=== PATIENT | male | born 1955 | race Caucasian/White ===

== ENCOUNTER 2018-04-28 12:05 | Emergency (ER) | payer OTHER ==
--- OUTSIDE RECORDS SUMMARY | 2018-04-28 12:08 | XMS REPORT | Clinical Summary ---
:1955 Author Organization [facility] Address [address] [place] [address] Care Team Providers Name Role Phone Klaus Lema Radha VILLEGAS Primary Care Provider Allergies No Known Allergies Current Medications Prescription Sig. Disp. Refills Start Date End Date Status albuterol (PROAIR Inhale 1 puff. Active HFA,PROVENTIL HFA,VENTOLIN HFA) 90 mcg/actuation inhaler aspirin 81 mg chewable Chew 81 mg. Active tablet clopidogrel (PLAVIX) 75 Take 75 mg by mouth. Active mg tablet amLODIPine (NORVASC) 5 Take 5 mg by mouth Active mg tablet daily. traMADol (ULTRAM) 50 mg Take 50 mg by mouth Active tablet every 6 (six) hours as needed for moderate pain. sertraline (ZOLOFT) 50 Take 50 mg by mouth Active MG tablet daily. pravastatin (PRAVACHOL) Take 40 mg by mouth Active 40 MG tablet daily. Active Problems Not on file Encounters Date Type Specialty Care Team Description 04/18/2018 Office Visit Cardiovascular Lakia Riddle MD PAD (peripheral artery disease) (Primary Dx) after 04/27/2017 Social History Tobacco Use Types Packs/Day Years Used Date Former Smoker Quit: 04/18/2006 Smokeless Tobacco: Never Used Sex Assigned at Date Recorded Not on file Last Filed Vital Signs Vital Sign Reading Time Taken Blood Pressure 169/79 04/18/2018 8:04 AM CDT Pulse 70 04/18/2018 8:04 AM CDT Temperature 36.5 C (97.7 F) 04/18/2018 8:04 AM CDT Respiratory Rate - - Oxygen Saturation - - Inhaled Oxygen Concentration - - Weight 83.9 kg (185 lb) 04/18/2018 8:04 AM CDT Height 177.8 cm (5' 10") 04/18/2018 8:04 AM CDT Body Mass Index 26.54 04/18/2018 8:04 AM CDT Plan of Treatment Date Type Specialty Care Team Description 05/04/2018 Appointment Procedural Cardiology Lakia Riddle MD [address] [facility] [address] [place] [address] 05/14/2018 Office Visit Cardiovascular Lakia Riddle MD [address] [facility] [address] [place] [address] Health Maintenance Due Date Last Done Comments COLON CANCER SCREENING 2007 SHINGRIX VACCINE (#1) 2007 ZOSTER VACCINE 2017 INFLUENZA VACCINE 04/04/2018 Results Not on fileafter 04/27/2017 Insurance Payer Benefit Plan / Group Subscriber ID Type Phone Address UHC MEDICARE [employer] MEDICARE DIRECT [facility] xxxxxxxxx O
[2018-04-28 15:04] LABS: Absolute Monocytes 0.7 K/uL (0.1-1.3); Basophils % 0.6 % (0-1.3); Eosinophils % 2.9 % (0-4.4); Hematocrit 45.8 % (39.6-49.0); MCH 32.2 pg (27.0-35.0); MCV 93.7 fL (80-100); MPV 8.1 fL (7.6-11.3); Monocytes % 9.2 % (3.3-12.3); RBC Red Blood Cell Count 4.89 M/uL (4.33-5.43)
[2018-04-28 15:19] LABS: Protime INR 1.02
[2018-04-28 15:21] LABS: Albumin 3.9 g/dL (3.4-5.0); Bilirubin Direct 0.1 mg/dL (0-0.2); Bilirubin Total 0.3 mg/dL (0.2-1.0); Potassium 4.1 mmol/L (3.5-5.1); Protein, Total 7.8 g/dL (6.4-8.2)
[2018-04-28] MEDS ORDERED: ONDANSETRON 4 MG/2 ML VIAL ONE (15:55)
[2018-04-28] MEDS ORDERED: MORPHINE 4 MG/ML SYR ONE ×2 (15:55→17:15)
--- NOTE | 2018-04-28 17:06 | RAD REPORT ---
EXAM DESCRIPTION: USEXTALLEN VENOUS UNI LTD04/28/2018 4:21 pm CLINICAL HISTORY: Right leg pain . COMPARISON: None. FINDINGS: Right common femoral, superficial femoral, popliteal and right posterior tibial veins are compressible and demonstrate augmentation. Doppler demonstrates good flow. IMPRESSION: No evidence of deep venous thrombosis involving the right lower extremity.
--- NOTE | 2018-04-28 17:12 | RAD REPORT ---
EXAM DESCRIPTION: US - LOWER EXTREMITY ARTERY UNI LTD - 04/28/2018 4:21 pm CLINICAL HISTORY: Right leg pain COMPARISON: CT April 16, 2018 FINDINGS: A 25 x 17 millimeter fluid collection lies anterior to the right common femoral artery. It does not contain blood flow. Right common femoral and right superficial femoral artery demonstrates biphasic waveforms. There appe ars to be a graft at the distal right superficial femoral artery which extends into the superior aspe ct of the calf. The graft is patent. Monophasic waveforms involve right posterior tibial artery. Right dorsalis pedis artery has a biphasi c waveform IMPRESSION: 25 x 17 millimeter fluid collection anterior to the right common femoral artery may repr esent a subacute hematoma. An abscess is considered less likely and should be correlated clinically. Patent arterial graft
[2018-04-28 17:44] LABS: Urine Blood NEGATIVE (NEG); Urine Glucose NEGATIVE (NEG); Urine Protein NEGATIVE (NEG); Urine pH 6.5 (5.0-7.0)
--- NOTE | 2018-04-28 18:50 | RAD REPORT ---
EXAM DESCRIPTION: CT - Angio Aorta For Dissection - 04/28/2018 6:19 pm CLINICAL HISTORY: . Chest and abdominal pain/right inguinal swelling COMPARISON: April 16, 2018 CT TECHNIQUE: Computed tomography angiography of the chest, abdomen pelvis were obtained. 100 cc Isovue 370 was administered intravenously. Coronal and sagittal reconstruction were performed. MIP 3D reconstruction was performed All CT scans are performed using dose optimization technique as appropriate and may include automated exposure control or mA/KV adjustment according to patient size. FINDINGS: An aortic dissection is not seen. An aortic aneurysm is not displayed. Mild thrombus is p resent within the thoracic abdominal aorta. An aorto femoral graft is patent. A portion of the left i nternal iliac artery is occluded. The celiac, and SMA are patent. The proximal BLAIR is not visualized. A lung consolidation is not present. A pericardial effusion is not seen. A pleural effusion is not n oted. The liver,spleen, pancreas ,adrenals kidneys demonstrate no significant abnormality. A 26 x 19 millimeter fluid collection lies anterior to the right common femoral artery and is without significant change from the prior exam. IMPRESSION: Negative for an aortic dissection. Patent aortofemoral graft 26 x 19 millimeter fluid collection anterior to the right common femoral artery without significant c hange may represent a hematoma. An abscess can also have this appearance and should be correlated cli nically
--- NOTE | 2018-04-28 19:27 | EDPHYS ---
Physician Documentation [facility] Name: Anthony Griffin Age: 62 yrs Sex: Male : 1955 Arrival Date: 04/28/2018 Time: 12:06 Bed 13 Private MD: Klaus Lema ED Physician Taj Wynne HPI: 04/28 17:00 This 62 yrs old Male presents to ER via Ambulatory with complaints of Right pm1 Leg Pain and Swelling. 17:00 The patient presents with pain, swelling. The complaints affect the right arredondo and pm1 right inguinal area. Patient with right femoral artery bypass two months ago in [place] due to femoral artery occlusion. Since having the graft, patient has reported right groin swelling and right arredondo swelling. Right arredondo swelling resolves when his feet are elevated and increase with dependence and standing. Right groin pain and swelling has been constant since surgery. Patient without any numbness, tingling, or decreased warmth to right leg. Patient was evaluated at [facility] for the same presentation and complaint 1-2 weeks and was discharged from the ER for outpatient follow up . Historical: - Allergies: 12:42 No Known Allergies; ss - Immunization history:: Adult Immunizations up to date. - Social history:: Smoking status: Patient/guardian denies using tobacco, the patient reports quitting approximately 13 years ago. - Ebola Screening: : Patient denies exposure to infectious person Patient denies travel to an Ebola-affected area in the 21 days before illness onset. ROS: 17:00 Constitutional: Negative for fever, chills, and weight loss, Eyes: Negative for injury, pm1 pain, redness, and discharge, ENT: Negative for injury, pain, and discharge, Neck: Negative for injury, pain, and swelling, Cardiovascular: Negative for chest pain, palpitations, and edema, Respiratory: Negative for shortness of breath, cough, wheezing, and pleuritic chest pain, Back: Negative for injury and pain, : Negative for injury, bleeding, discharge, and swelling. 17:00 Abdomen/GI: Negative for abdominal pain, nausea, vomiting, diarrhea, and constipation. 17:00 Skin: Negative for injury, rash, and discoloration. 17:00 Neuro: Negative for headache, weakness, numbness, tingling, and seizure. 17:00 : Positive for of the right femoral area, tenderness and swelling. 17:00 MS/extremity: Positive for pain, swelling, of the right arredondo. Exam: 17:00 Constitutional: This is a well developed, well nourished patient who is awake, alert, pm1 and in no acute distress. Head/Face: Normocephalic, atraumatic. Neck: Trachea midline, no thyromegaly or masses palpated, and no cervical lymphadenopathy. Supple, full range of motion without nuchal rigidity, or vertebral point tenderness. No Meningismus. Chest/axilla: Normal chest wall appearance and motion. Nontender with no deformity. No lesions are appreciated. Cardiovascular: Regular rate and rhythm with a normal S1 and S2. No gallops, murmurs, or rubs. Normal PMI, no JVD. No pulse deficits. Respiratory: Lungs have equal breath sounds bilaterally, clear to auscultation and percussion. No rales, rhonchi or wheezes noted. No increased work of breathing, no retractions or nasal flaring. Abdomen/GI: Soft, non-tender, with normal bowel sounds. No distension or tympany. No guarding or rebound. No evidence of tenderness throughout. Back: No spinal tenderness. No costovertebral tenderness. Full range of motion. 17:00 MS/ Extremity: Pulses equal, no cyanosis. Neurovascular intact. Full, normal range of motion. 17:00 : Male external genitalia: normal, no erythema, no swelling, no tenderness. 17:00 Skin: abscess, not appreciated, of the right femoral and inguinal area, cellulitis, is not appreciated, on the right femoral and inguinal area. Vital Signs: 12:42 BP 155 / 94; Pulse 100; Resp 21; Temp 98.2(O); Pulse Ox 95% on R/A; Weight 85.73 kg; ss Height 5 ft. 10 in. (177.80 cm); Pain 7/10; 15:39 BP 145 / 69; Pulse 75; Resp 18; Pulse Ox 100% ; tl3 16:00 BP 157 / 83; Pulse 81; Resp 18; Pulse Ox 100% on R/A; tl3 17:15 BP 137 / 77; Pulse 92; Resp 18; Pulse Ox 97% on R/A; tl3 18:41 BP 111 / 95; Pulse 82; Resp 18; Pulse Ox 96% on R/A; dm5 19:20 BP 110 / 90; Pulse 72; Resp 16; Temp 97.6; Pulse Ox 96% on R/A; Pain 4/10; ak1 12:42 Body Mass Index 27.12 (85.73 kg, 177.80 cm) ss MDM: 14:03 Patient medically screened. pm1 17:30 Physician consultation: Lakia Riddle was called at 17:25, was contacted at 17:25, pm1 regarding consult, patient's condition, would like further tests performed, CTA. 17:39 Data reviewed: vital signs. Data interpreted: Pulse oximetry: on room air is 97 %. pm1 Interpretation: normal. 19:22 Physician consultation: Lakia Riddle was contacted at 19:23, regarding patient's pm1 condition, CT results, and will see patient in office, next week, patient has scheduled appointment on the 05/03. 19:26 Counseling: I had a detailed discussion with the patient and/or guardian regarding: the pm1 historical points, exam findings, and any diagnostic results supporting the discharge/admit diagnosis, lab results, radiology results, the need for outpatient follow up, vascular surgeon, to return to the emergency department if symptoms worsen or persist or if there are any questions or concerns that arise at home. 04/28 14:24 Order name: CBC with Diff; Complete Time: 15:23 pm04/28 14:24 Order name: BMP; Complete Time: 15:23 pm04/28 14:24 Order name: Hepatic Function; Complete Time: 15:23 pm04/28 14:24 Order name: PT-INR; Complete Time: 15:23 pm04/28 14:24 Order name: Ptt, Activated; Complete Time: 15:23 pm04/28 17:34 Order name: Urine Dipstick--Ancillary (enter results); Complete Time: 17:53 eb 04/28 14:23 Order name: Extremity Venous Uni Ltd US; Complete Time: 17:15 pm04/28 14:23 Order name: Lower Extremity Artery Uni Ltd US; Complete Time: 17:15 pm04/28 14:24 Order name: IV Saline Lock; Complete Time: 15:00 pm04/28 17:35 Order name: CT Aorta for Dissection; Complete Time: 19:02 pm1 Administered Medications: 15:58 Drug: morphine 4 mg Route: IVP; Infused Over: 2 mins; Site: right antecubital; tl3 18:42 Follow up: Response: No adverse reaction; Pain is decreased dm5 15:58 Drug: Zofran 4 mg Route: IVP; Infused Over: 2 mins; Site: right antecubital; tl3 18:43 Follow up: Response: No adverse reaction dm5 17:17 Drug: morphine 4 mg Route: IVP; Site: right antecubital; tl3 18:43 Follow up: Response: No adverse reaction; Pain is decreased dm5 Disposition: 04/28/18 19:26 Discharged to Home. Impression: Right groin hematoma. - Condition is Stable. - Discharge Instructions: Hematoma. - Prescriptions for Tylenol- Codeine #3 300-30 mg Oral Tablet - take 2 tablets by ORAL route every 6 hours As needed; 20 tablet. - Medication Reconciliation Form, Thank You Letter, Antibiotic Education, Prescription Opioid Use form. - Follow up: Emergency Department; When: As needed; Reason: Worsening of condition. Follow up: Private Physician; When: 5 - 6 days; Reason: Recheck today's complaints, Continuance of care, Re-evaluation by your physician. - Problem is new. - Symptoms have improved. Addendum: 04/30/2018 11:28 Co-signature as Attending Physician, Taj Wynne MD I agree with the assessment and w a plan of care. Signatures: Dispatcher [employer] EDMS Cuca Capone RN RN ss Krenek, Amber RN RN ak1 Nino Quijano, AUTOMATIC OUTSOLE CUTTER AUTOMATIC OUTSOLE CUTTER pm1 Taj Wynne MD MD wa Lowrey, Tammy, RN RN tl3 Mery Middleton RN dm5 Corrections: (The following items were deleted from the chart) 04/28 19:33 14:25 Urine Dipstick-Ancillary ordered. pm1 ak1 19:34 19:26 04/28/2018 19:26 Discharged to Home. Impression: Right groin hematoma. Condition ak1 is Stable. Forms are Medication Reconciliation Form, Thank You Letter, Antibiotic Education, Prescription Opioid Use. Follow up: Emergency Department; When: As needed; Reason: Worsening of condition. Follow up: Private Physician; When: 5 - 6 days; Reason: Recheck today's complaints, Continuance of care, Re-evaluation by your physician. Problem is new. Symptoms have improved. pm1
--- NOTE | 2018-04-28 19:27 | ER ---
Nurse's Notes [facility] Name: Anthony Griffin Age: 62 yrs Sex: Male : 1955 Arrival Date: 04/28/2018 Time: 12:06 Bed 13 Private MD: Klaus Lema Diagnosis: Right groin hematoma Presentation: 04/28 12:40 Presenting complaint: Patient states: Patient reports leg swelling, pain and ss discoloration to R arredondo area that began this morning. PT recently had surgery to his R femoral artery 3-4 months ago and was told by Dr. 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 Patient is here because of road closures. Transition of care: patient was not received from another setting of care. Onset of symptoms was April 28, 2018. Risk Assessment: Do you want to hurt yourself or someone else? Patient reports no desire to harm self or others. Initial Sepsis Screen: Does the patient meet any 2 criteria? RR > 20 per min. Does the patient have a suspected source of infection? No. Patient's initial sepsis screen is negative. Care prior to arrival: None. 12:40 Method Of Arrival: Ambulatory ss 12:40 Acuity: MENDY 2 ss Historical: - Allergies: 12:42 No Known Allergies; ss - Immunization history:: Adult Immunizations up to date. - Social history:: Smoking status: Patient/guardian denies using tobacco, the patient reports quitting approximately 13 years ago. - Ebola Screening: : Patient denies exposure to infectious person Patient denies travel to an Ebola-affected area in the 21 days before illness onset. Screenin:39 Abuse screen: Denies threats or abuse. Nutritional screening: No deficits noted. tl3 Tuberculosis screening: No symptoms or risk factors identified. Fall Risk None identified. Assessment: 15:39 General: Appears uncomfortable, well groomed, well developed, well nourished, Behavior tl3 is calm, cooperative, appropriate for age. Pain: Complains of pain in right upper thigh, right quadriceps and right arredondo Pain currently is 8 out of 10 on a pain scale. Neuro: Level of Consciousness is awake, alert, obeys commands, Oriented to person, place, time, situation, Appropriate for age. Cardiovascular: Capillary refill < 3 seconds in right toes Patient's skin is warm and dry. Cardiovascular: Reports swelling and pain to right leg, recent venous surgery to right leg. Respiratory: Airway is patent Respiratory effort is even, unlabored, Respiratory pattern is regular, symmetrical. GI: No signs and/or symptoms were reported involving the gastrointestinal system. : No signs and/or symptoms were reported regarding the genitourinary system. EENT: No signs and/or symptoms were reported regarding the EENT system. Derm: No signs and/or symptoms reported regarding the dermatologic system. Musculoskeletal: No signs and/or symptoms reported regarding the musculoskeletal system. 16:00 Reassessment: No changes from previously documented assessment. Patient and/or family tl3 updated on plan of care and expected duration. Pain level reassessed. Patient is alert, oriented x 3, equal unlabored respirations, skin warm/dry/pink. daughter at bedside. 17:15 Reassessment: No changes from previously documented assessment. Patient and/or family tl3 updated on plan of care and expected duration. Pain level reassessed. Patient is alert, oriented x 3, equal unlabored respirations, skin warm/dry/pink. pt c/o pain, provider notified. 18:41 Reassessment: No changes from previously documented assessment. Patient and/or family dm5 updated on plan of care and expected duration. Pain level reassessed. Patient is alert, oriented x 3, equal unlabored respirations, skin warm/dry/pink. no needs at this time. Vital Signs: 12:42 BP 155 / 94; Pulse 100; Resp 21; Temp 98.2(O); Pulse Ox 95% on R/A; Weight 85.73 kg; ss Height 5 ft. 10 in. (177.80 cm); Pain 7/10; 15:39 BP 145 / 69; Pulse 75; Resp 18; Pulse Ox 100% ; tl3 16:00 BP 157 / 83; Pulse 81; Resp 18; Pulse Ox 100% on R/A; tl3 17:15 BP 137 / 77; Pulse 92; Resp 18; Pulse Ox 97% on R/A; tl3 18:41 BP 111 / 95; Pulse 82; Resp 18; Pulse Ox 96% on R/A; dm5 19:20 BP 110 / 90; Pulse 72; Resp 16; Temp 97.6; Pulse Ox 96% on R/A; Pain 4/10; ak1 12:42 Body Mass Index 27.12 (85.73 kg, 177.80 cm) ED Course: 12:06 Patient arrived in ED. as 12:07 Klaus Lema DO is Private Physician. as 12:41 Triage completed. ss 12:42 Arm band placed on right wrist. ss 14:02 Nino Quijano NP is PHCP. pm1 14:02 Taj Wynne MD is Attending Physician. pm1 14:34 Elisha Valentine RN is Primary Nurse. tl3 14:57 Initial lab(s) drawn, by tx, sent to lab. Inserted saline lock: 20 gauge in right dh3 antecubital area, using aseptic technique. Blood collected. 15:39 Patient has correct armband on for positive identification. Placed in gown. Bed in low tl3 position. Call light in reach. Side rails up X 1. Pulse ox on. NIBP on. Warm blanket given. Pillow given. 15:39 No provider procedures requiring assistance completed. tl3 16:00 Patient taken to ultrasound. tl3 16:20 Extremity Venous Uni Ltd US In Process Unspecified. EDMS 16:20 Lower Extremity Artery Uni Ltd US In Process Unspecified. EDMS 16:20 Ultrasound completed. Patient tolerated well. Patient moved back from ultrasound. aa4 18:19 CT Aorta for Dissection In Process Unspecified. EDMS 19:33 IV discontinued, intact, bleeding controlled, No redness/swelling at site. Pressure ak1 dressing applied. Administered Medications: 15:58 Drug: morphine 4 mg Route: IVP; Infused Over: 2 mins; Site: right antecubital; tl3 18:42 Follow up: Response: No adverse reaction; Pain is decreased dm5 15:58 Drug: Zofran 4 mg Route: IVP; Infused Over: 2 mins; Site: right antecubital; tl3 18:43 Follow up: Response: No adverse reaction dm5 17:17 Drug: morphine 4 mg Route: IVP; Site: right antecubital; tl3 18:43 Follow up: Response: No adverse reaction; Pain is decreased dm5 Outcome: 19:26 Discharge ordered by . pm1 19:34 Discharged to home ambulatory, with family. ak1 19:34 Condition: good 19:34 Discharge instructions given to patient, family, Instructed on discharge instructions, follow up and referral plans. no drinking with medication, no driving heavy equipment, medication usage, Demonstrated understanding of instructions, follow-up care, medications, Prescriptions given X 1. 19:34 Patient left the ED. ak1 Signatures: Dispatcher [employer] EDMS Mery Middleton, RN RN [id number] Vani Ivan Amanda aa4 Cuca Capone RN RN ss Karolina Julien RN RN ak1 Nino Quijano, AUTO CARE CENTER MANAGER AUTO CARE CENTER MANAGER 1 Karen Mcgrath 3 Elisha Valentine RN RN tl3
[2018-04-28 19:44] VITALS: O2SAT 96
[2018-04-28 19:45] VITALS: BP 110/90; TEMP 97.6
== END 2018-04-28 19:34 | disposition home or self-care (01) ==
LOC: ER 12:05
DX: S70.11XA Contusion of right thigh, initial encounter (principal); X58.XXXA Exposure to other specified factors, initial encounter; Z95.828 Presence of other vascular implants and grafts
CPT/HCPCS: 36415; 71275; 74175; 80048; 80076; 81003; 85025; 85610; 85730; 93926; 93971; 96374; 96375; 99284; J2405; Q9967

== ENCOUNTER 2018-06-02 13:34 | Emergency (ER) | payer OTHER ==
--- OUTSIDE RECORDS SUMMARY | 2018-06-02 13:36 | XMS REPORT | Clinical Summary ---
:1955 Author Organization [facility] Address [address] [place] [address] Care Team Providers Name Role Phone Klaus Lema Primary Care Provider Allergies No Known Allergies Current Medications Prescription Sig. Disp. Refills Start Date End Date Status albuterol (PROAIR Inhale 1 puff. Active HFA,PROVENTIL HFA,VENTOLIN HFA) 90 mcg/actuation inhaler aspirin 81 mg Chew 81 mg. Active chewable tablet clopidogrel (PLAVIX) Take 75 mg by Active 75 mg tablet mouth. amLODIPine (NORVASC) Take 5 mg by Active 5 mg tablet mouth daily. traMADol (ULTRAM) 50 Take 50 mg by Active mg tablet mouth every 6 (six) hours as needed for moderate pain. sertraline (ZOLOFT) Take 50 mg by Active 50 MG tablet mouth daily. pravastatin Take 40 mg by Active (PRAVACHOL) 40 MG mouth daily. tablet lidocaine-prilocaine Apply topically 30 g 0 05/14/2018 Active (EMLA) 2.5-2.5 % every 12 (twelve) cream hours as needed for mild pain. Apply to right groin area for pain every 12 hrs as needed lidocaine (LIDODERM) Place 1 patch on 30 patch 0 04/30/2018 05/30/2018 5 % the skin daily for 30 days. Remove & Discard patch within 12 hours for Right groin pain Active Problems Not on file Encounters Date Type Specialty Care Team Description 05/14/2018 Office Visit Cardiovascular Familia Pierre MD PAD (peripheral artery disease) (Primary Dx) 05/14/2018 Orders Only Cardiovascular Martha Montemayor, JEREMIAH 05/08/2018 Orders Only Cardiovascular Martha Montemayor, JEREMIAH 05/04/2018 Ancillary Orders Cardiovascular Familia Pierre MD PAD ( peripheral artery disease) 05/03/2018 Telephone Cardiovascular Anne Owens 05/01/2018 Telephone Cardiovascular Martha Montemayor RN 04/30/2018 Telephone Cardiovascular Barbie Carlton RN 04/30/2018 Orders Only Cardiovascular Martha Montemayor RN 04/18/2018 Office Visit Cardiovascular Familia Pierre MD PAD (peripheral artery disease) (Primary Dx) after 06/01/2017 Social History Tobacco Use Types Packs/Day Years Used Date Former Smoker Quit: 04/18/2006 Smokeless Tobacco: Never Used Sex Assigned at Date Recorded Not on file Last Filed Vital Signs Vital Sign Reading Time Taken Blood Pressure 129/60 05/14/2018 9:14 AM CDT Pulse 84 05/14/2018 9:14 AM CDT Temperature 35.6 C (96 F) 05/14/2018 9:14 AM CDT Respiratory Rate 14 05/14/2018 9:14 AM CDT Oxygen Saturation - - Inhaled Oxygen Concentration - - Weight 84.4 kg (186 lb) 05/14/2018 9:14 AM CDT Height 177.8 cm (5' 10") 05/14/2018 9:14 AM CDT Body Mass Index 26.69 05/14/2018 9:14 AM CDT Plan of Treatment Date Type Specialty Care Team Description 08/13/2018 Appointment Procedural Cardiology Familia Pierre MD [address] [facility] [address] [place] [address] 08/13/2018 Office Visit Cardiovascular Familia Pierre MD [address] [facility] [address] [place] [address] Health Maintenance Due Date Last Done Comments COLON CANCER SCREENING 2007 SHINGRIX VACCINE (#1) 2007 ZOSTER VACCINE 2017 INFLUENZA VACCINE 04/04/2018 Procedures Procedure Name Priority Date/Time Associated Diagnosis Comments US ANKLE BRACHIAL Routine 05/04/2018 10:10 AM PAD (peripheral Results for this INDEX CDT artery disease) procedure are in the results section. US DUPLEX ARTERIAL Routine 05/04/2018 10:10 AM PAD (peripheral Results for this LOWER EXTREMITY CDT artery disease) procedure are in BILATERAL the results section. after 06/01/2017 Results Us ankle brachial index (05/04/2018 10:10 AM) Narrative Performed At [facility] Lower Extremity Arterial Physiologic Report [id number] [place], [place] Pat.Name:Gerardo GRIFFIN.ID:[id number] .Date: 05/04/2018 Refer.MD:FAMILIA PIERRE MD Exam Time: 8:36:00 AMStudy Type:Physiologic Leg DOBAge:1955,62Y Sex: MALE Sonogrphr: Doc Rajan RDMS, T CPT - 4: 84208 Echo Event ID:[id number] Order ID:[id number] Reason for Study:Patient presents with painful area in the right groin, as well as pain in the right lateral calf.History of right leg bypass graft.No previous ABIs are available for comparison. Race:C SUMMARY: DOPPLER SIGNALS /ANALOG WAVEFORMS: ANALOG WAVEFORMS ARTERY RIGHT LEFT Posterior Tibial Inaudible Normal Dorsalis Pedis Normal Abnormal PRELIMINARY FINDINGS: 1.Bilateral ankle brachial indices are within normal limits at rest. 2.Bilateral toe brachial indices are within normal limits. PHYSICIAN INTERPRETATION: Bilateral lower extremity arterial exam demonstrates no evidence of significant arterial occlusive disease. The JEFF's and TBI's are within normal range. MEASUREMENTS: PRESSURES Right Brachial Brach P150 mmHg Left Brachial Brach P148 mmHg Left Ankle PT AnklePT P174 mmHg Right Ankle DP AnkleDP P158 mmHg Left Ankle DP AnkleDP P140 mmHg Right Great Toe GreatToe P92 mmHg Left Great Toe GreatToe P 121 mmHg Left JEFF PT JEFF PT1.16 Right JEFF DP JEFF DP1.05 Left JEFF DP JEFF DP0.93 Right TBI TBI 0.61 Left TBI TBI 0.81 Signed 05/07/2018 10:54 AM Azeem Kramer MD, RPVI Procedure Note Interface, Radiology Results In - 05/07/2018 10:54 AM CDT [facility] Lower Extremity Arterial Physiologic Report [address] [place] [address] Pat.Name: DHEERAJ GRIFFIN Pat.ID: [id number] .Date: 05/04/2018 Refer.MD: FAMILIA PIERRE MD Exam Time: 8:36:00 AM Study Type:Physiologic Leg Age: 1 1955,62Y Sex: MALE Sonogrphr: Doc Rajan RDMS, T CPT - 4: 64117 Echo Event ID:[id number] Order ID: [id number] Reason for Study:Patient presents with painful area in the right groin, as well as pain in the right lateral calf. History of right leg bypass graft. No previous ABIs are available for comparison. Race: C SUMMARY: DOPPLER SIGNALS / ANALOG WAVEFORMS: ANALOG WAVEFORMS ARTERY RIGHT LEFT Posterior Tibial Inaudible Normal Dorsalis Pedis Normal Abnormal PRELIMINARY FINDINGS: 1. Bilateral ankle brachial indices are within normal limits at rest. 2. Bilateral toe brachial indices are within normal limits. PHYSICIAN INTERPRETATION: Bilateral lower extremity arterial exam demonstrates no evidence of significant arterial occlusive disease. The JEFF's and TBI's are within normal range. MEASUREMENTS: PRESSURES Right Brachial Brach P 150 mmHg Left Brachial Brach P 148 mmHg Left Ankle PT AnklePT P 174 mmHg Right Ankle DP AnkleDP P 158 mmHg Left Ankle DP AnkleDP P 140 mmHg Right Great Toe GreatToe P 92 mmHg Left Great Toe GreatToe P 121 mmHg Left JEFF PT JEFF PT 1.16 Right JEFF DP JEFF DP 1.05 Left JEFF DP JEFF DP 0.93 Right TBI TBI 0.61 Left TBI TBI 0.81 Signed 05/07/2018 10:54 AM Azeem Kramer MD, RPVI Performing Organization Address City/State/Zipcode Phone Number [facility] [address] [place] [address] PV duplex arterial lower extremity (05/04/2018 10:10 AM) Narrative Performed At [facility] Lower Extremity Arterial Duplex Report [id number] [facility] [address] [place], [place] [id number] Pat.Name:Gerardo GRIFFIN.ID:[id number] .Date: 05/04/2018 Refer.MD:FAMILIA PIERRE MD Exam Time: 8:51:00 AMStudy Type:LE Arterial DOBAge:1955,62Y Sex: MALE Sonogrphr: Doc Rajan RDMS, T CPT - 4: 88854 Echo Event ID:[id number] Order ID:[id number] Reason for Study:Patient presents with painful area in the right groin, as well as pain in the right lateral calf.History of right leg bypass graft. Race:C SUMMARY: DUPLEX SCAN OBSERVATIONS: RIGHT:Duplex imaging of the right lower extremity shows a non-vascular, hypoechoic area measuring 4.1 x 2.5 x 1.3 cm in the groin near the common femoral artery.Also noted near the groin extending midline in the pubic area is a non-vascular, linear structure.This may be to be a hernia mesh.The distal tibioperoneal trunk has heterogenous plaque with no colorflow noted.There is a patent distal superficial femoral to proximal anterior tibial artery bypass graft is noted with no elevated velocities.The flow is reversed in the proximal anterior tibial artery.The peroneal artery is not visualized. LEFT:Duplex imaging of the left lower extremity shows heterogenous plaque with no elevated velocities.The peroneal artery could not be visualized in it's entirety. PRELIMINARY FINDINGS: 1.Possible hernia mesh noted in the right groin extending midine in the pubic area.This is the area that the patient feels pain. 2.Possible fluid collection in the right groin measuring 4.1 x 2.5 x 1.3 cm in maximum diameter. 3.Occluded right distal tibioperoneal trunk. 4.Patent right distal superficial femoral to proximal anterior tibial artery bypass graft with no elevated velocities. 5.Right proximal anterior tibial artery flow is reversed. 6.<50% stenosis of the arteries of the left lower extremity. PHYSICIAN INTERPRETATION: Arterial duplex examination ofbilateral lower extremity demonstrates diffusely calcified arteries. Cyst vs. seroma in the right groin (4.1 x 2.5 x 1.3cm). Occluded right distal tibioperoneal trunk. Patent distal right SFA to right AT bypass graft. Reversal of flow in proximal right AT. MEASUREMENTS: DOPPLER Left SITE CONTROLLER Prox SITE CONTROLLER Prox PSV84 cm/s Right SITE CONTROLLER Prox SITE CONTROLLER Prox PSV15 cm/s Left SPRING TIER Mid SPRING TIER Mid [id number] cm/s Right SPRING TIER Mid SPRING TIER Mid PSV 67 cm/s Left SITE CONTROLLER Distal SITE CONTROLLER Distal PSV78 cm/s Right SITE CONTROLLER Distal SITE CONTROLLER Distal PSV15 cm/s Left SITE CONTROLLER Mid SITE CONTROLLER Mid PSV 55 cm/s Right SITE CONTROLLER Mid SITE CONTROLLER Mid PSV 13 cm/s Left Peroneal Dist Peroneal Dist P40 cm/s Left SFA Mid SFA Mid [id number] cm/s Right SFA Mid SFA Mid PSV 84 cm/s Left HEIDI Prox HEIDI Prox PSV49 cm/s Left HEIDI Mid HEIDI Mid PSV 57 cm/s Right HEIDI Mid HEIDI Mid PSV 56 cm/s Left HEIDI Distal HEIDI Distal PSV51 cm/s Right HEIDI Distal HEIDI Distal PSV62 cm/s Left Pop Mid Pop Mid PSV 77 cm/s Right Pop Mid Pop Mid PSV 47 cm/s Left TP Trunk Prox TP Trunk Prox P57 cm/s Right TP Trunk Prox TP Trunk Prox P37 cm/s Right TP Trunk Dist TP Trunk Dist P 0 cm/s Left SFA Prox SFA Prox PSV 109 cm/s Right SFA Prox SFA Prox PSV72 cm/s Left SFA Dist SFA Dist PSV 101 cm/s Right SFA Dist SFA Dist PSV53 cm/s Right Profunda Profunda PSV59 cm/s GRAFT Right Graft Distal Thigh Distal SFA to Proximal HEIDI:Peripheral bypass Graft Distal Th70 cm/s Distal Calf Graft Distal Calf Gra55 cm/s Right Prox Anastomosis Distal SFA to Proximal HEIDI:Peripheral bypass Prox Anast PSV66 cm/s Right At Knee Distal SFA to Proximal HEIDI:Peripheral bypass Suni Vessel PSV64 cm/s Right Below knee Distal SFA to Proximal HEIDI:Peripheral bypass Below knee PSV 102 cm/s Right Graft Distal Anastomosis Distal SFA to Proximal HEIDI:Peripheral bypass Graft Distal An62 cm/s Signed 05/07/2018 10:51 AM Azeem Kramer MD, RPVI Procedure Note Interface, Radiology Results In - 05/07/2018 10:51 AM CDT [facility] Lower Extremity Arterial Duplex Report [id number] [facility] [address], [place] [address] Pat.Name: DHEERAJ GRIFFIN Pat.ID: [id number] .Date: 05/04/2018 Refer.MD: FAMILIA PIERRE MD Exam Time: 8:51:00 AM Study Type:LE Arterial Age: 1 1955,62Y Sex: MALE Sonogrphr: Doc Rajan RDMS, RVT CPT - 4: 13843 Echo Event ID:[id number] Order ID: [id number] Reason for Study:Patient presents with painful area in the right groin, as well as pain in the right lateral calf. History of right leg bypass graft. Race: C SUMMARY: DUPLEX SCAN OBSERVATIONS: RIGHT: Duplex imaging of the right lower extremity shows a non-vascular, hypoechoic area measuring 4.1 x 2.5 x 1.3 cm in the groin near the common femoral artery. Also noted near the groin extending midline in the pubic area is a non-vascular, linear structure. This may be to be a hernia mesh. The distal tibioperoneal trunk has heterogenous plaque with no colorflow noted. There is a patent distal superficial femoral to proximal anterior tibial artery bypass graft is noted with no elevated velocities. The flow is reversed in the proximal anterior tibial artery. The peroneal artery is not visualized. LEFT: Duplex imaging of the left lower extremity shows heterogenous plaque with no elevated velocities. The peroneal artery could not be visualized in it's entirety. PRELIMINARY FINDINGS: 1. Possible hernia mesh noted in the right groin extending midine in the pubic area. This is the area that the patient feels pain. 2. Possible fluid collection in the right groin measuring 4.1 x 2.5 x 1.3 cm in maximum diameter. 3. Occluded right distal tibioperoneal trunk. 4. Patent right distal superficial femoral to proximal anterior tibial artery bypass graft with no elevated velocities. 5. Right proximal anterior tibial artery flow is reversed. 6. <50% stenosis of the arteries of the left lower extremity. PHYSICIAN INTERPRETATION: Arterial duplex examination of bilateral lower extremity demonstrates diffusely calcified arteries. Cyst vs. seroma in the right groin (4.1 x 2.5 x 1.3cm). Occluded right distal tibioperoneal trunk. Patent distal right SFA to right AT bypass graft. Reversal of flow in proximal right AT. MEASUREMENTS: DOPPLER Left SITE CONTROLLER Prox SITE CONTROLLER Prox PSV 84 cm/s Right SITE CONTROLLER Prox SITE CONTROLLER Prox PSV 15 cm/s Left SPRING TIER Mid SPRING TIER Mid PSV 147 cm/s Right SPRING TIER Mid SPRING TIER Mid PSV 67 cm/s Left SITE CONTROLLER Distal SITE CONTROLLER Distal PSV 78 cm/s Right SITE CONTROLLER Distal SITE CONTROLLER Distal PSV 15 cm/s Left SITE CONTROLLER Mid SITE CONTROLLER Mid PSV 55 cm/s Right SITE CONTROLLER Mid SITE CONTROLLER Mid PSV 13 cm/s Left Peroneal Dist Peroneal Dist P 40 cm/s Left SFA Mid SFA Mid PSV 114 cm/s Right SFA Mid SFA Mid PSV 84 cm/s Left HEIDI Prox HEIDI Prox PSV 49 cm/s Left HEIDI Mid HEIDI Mid PSV 57 cm/s Right HEIDI Mid HEIDI Mid PSV 56 cm/s Left HEIDI Distal HEIDI Distal PSV 51 cm/s Right HEIDI Distal HEIDI Distal PSV 62 cm/s Left Pop Mid Pop Mid PSV 77 cm/s Right Pop Mid Pop Mid PSV 47 cm/s Left TP Trunk Prox TP Trunk Prox P 57 cm/s Right TP Trunk Prox TP Trunk Prox P 37 cm/s Right TP Trunk Dist TP Trunk Dist P 0 cm/s Left SFA Prox SFA Prox PSV 109 cm/s Right SFA Prox SFA Prox PSV 72 cm/s Left SFA Dist SFA Dist PSV 101 cm/s Right SFA Dist SFA Dist PSV 53 cm/s Right Profunda Profunda PSV 59 cm/s GRAFT Right Graft Distal Thigh Distal SFA to Proximal HEIDI:Peripheral bypass Graft Distal Th 70 cm/s Distal Calf Graft Distal Calf Gra 55 cm/s Right Prox Anastomosis Distal SFA to Proximal HEIDI:Peripheral bypass Prox Anast PSV 66 cm/s Right At Knee Distal SFA to Proximal HEIDI:Peripheral bypass Suni Vessel PSV 64 cm/s Right Below knee Distal SFA to Proximal HEIDI:Peripheral bypass Below knee PSV 102 cm/s Right Graft Distal Anastomosis Distal SFA to Proximal HEIDI:Peripheral bypass Graft Distal An 62 cm/s Signed 05/07/2018 10:51 AM Azeem Kramer MD, RPVI Performing Organization Address City/State/Zipcode Phone Number [facility] [address] [place] [address] after 06/01/2017 Insurance Payer Benefit Plan / Group Subscriber ID Type Phone Address [employer]HC MEDICARE [employer] MEDICARE DIRECT [facility] xxxxxxxxx HMO [phone] [place] [address]
[2018-06-02] MEDS ORDERED: IPRATROPIUM BROM 0.5MG/2.5ML ONE (14:43)
[2018-06-02] MEDS ORDERED: ALBUTEROL 2.5 MG/3 ML NEB SOL ONE (14:43)
--- NOTE | 2018-06-02 15:16 | RAD REPORT ---
EXAM DESCRIPTION: RAD - Chest Pa And Lat (2 Views) - 06/02/2018 2:41 pm CLINICAL HISTORY: Cough and congestion COMPARISON: None. TECHNIQUE: PA and lateral views of the chest were obtained. FINDINGS: The lungs are clear of a focal, mass or consolidation finding. Diaphragm is partially flat tened. Prominent interstitial markings are believed to be a baseline COPD. Heart size is normal and central vasculature is within normal limits. No pleural effusion or pneumothorax seen. No acute [place] finding noted. No aortic abnormality. IMPRESSION: Fibrotic and obstructive lung changes. No acute chest finding.
[2018-06-02 15:27] LABS: Absolute Lymphocytes (CBC) 1.8 K/uL (0.7-4.9); Absolute Monocytes 0.7 K/uL (0.1-1.3); Absolute Neutrophil 4.8 K/uL (1.8-8.0); Basophils % 0.6 % (0-1.3); Eosinophils % 2.3 % (0-4.4); Hematocrit 44.4 % (39.6-49.0); Lymphocytes % 24.1 % (15.3-44.8); MCH 31.9 pg (27.0-35.0); MCV 91.4 fL (80-100); MPV 8.3 fL (7.6-11.3); Monocytes % 9.8 % (3.3-12.3); Protime INR 1.05; RBC Red Blood Cell Count 4.86 M/uL (4.33-5.43)
[2018-06-02 15:37] LABS: ALT/SGPT 27 U/L (12-78); AST/SGOT 20 U/L (15-37); Albumin 3.7 g/dL (3.4-5.0); Alkaline Phosphatase 70 U/L (45-117); BUN Blood Urea Nitrogen 15 mg/dL (7-18); Bicarbonate 27 mmol/L (21-32); Bilirubin Direct < 0.1 mg/dL (0-0.2); Bilirubin Total 0.3 mg/dL (0.2-1.0); Glucose Level 113 mg/dL (74-106); Magnesium 1.6 mg/dL (1.8-2.4); NT PRO-BNP 112 pg/mL (<125); Potassium 3.8 mmol/L (3.5-5.1); Protein, Total 7.5 g/dL (6.4-8.2); Sodium Level 145 mmol/L (136-145); Troponin (Emerg Dept Use Only) < 0.02 ng/mL (0.0-0.045)
[2018-06-02] MEDS ORDERED: MAGNESIUM SULFATE 1 gm IVPB 1 GM/100 ML BAG IV ONE (16:41)
[2018-06-02] MEDS ORDERED: NA CHLORIDE 0.9% 250 ML ONE (16:41)
[2018-06-02] MEDS ORDERED: ONDANSETRON 4 MG/2 ML VIAL ONE (17:19)
[2018-06-02] MEDS ORDERED: MORPHINE 4 MG/ML SYR ONE (17:19)
--- NOTE | 2018-06-02 17:51 | ER ---
Nurse's Notes [facility] Name: Anthony Griffin Age: 62 yrs Sex: Male : 1955 Arrival Date: 06/02/2018 Time: 13:38 Bed 26 Private MD: Klaus Lema Diagnosis: Acute frontal sinusitis, unspecified;Acute upper respiratory infection, unspecified Presentation: 06/02 13:40 Presenting complaint: Patient states: Sinus congestion and pain for 1 week. Transition aj of care: patient was not received from another setting of care. Onset of symptoms was June 02, 2018. Risk Assessment: Do you want to hurt yourself or someone else? Patient reports no desire to harm self or others. Initial Sepsis Screen: Does the patient meet any 2 criteria? No. Patient's initial sepsis screen is negative. Does the patient have a suspected source of infection? No. Patient's initial sepsis screen is negative. Care prior to arrival: None. 13:40 Method Of Arrival: Ambulatory aj 13:40 Acuity: MENDY 3 aj Triage Assessment: 13:43 General: Appears in no apparent distress. comfortable, Behavior is calm, cooperative, aj appropriate for age. Pain: Complains of pain in face. EENT: Reports nasal congestion nasal discharge. Neuro: Level of Consciousness is awake, alert, obeys commands, Oriented to person, place, time, situation, Appropriate for age. Respiratory: Airway is patent Respiratory effort is even, unlabored, Respiratory pattern is regular, symmetrical. Derm: Skin is intact, is healthy with good turgor, Skin is pink, warm \T\ dry. normal. Historical: - Allergies: 13:43 No Known Allergies; aj - Home Meds: 13:43 clopidogrel 75 mg oral tab 1 tab once daily [Active]; ramipril 10 mg Oral cap 1 cap aj once daily [Active]; amlodipine 5 mg tab 1 tab once daily [Active]; sertraline 50 mg oral tab 1 tab once daily [Active]; pravastatin 80 mg oral tab 1 tab once daily [Active]; donepezil 10 mg oral TbDL 1 tab once daily [Active]; memantine 10 mg oral tab daily [Active]; aspirin 81 mg Oral TbEC 1 tab once daily [Active]; - PMHx: 13:43 Dementia; Hyperlipidemia; CVA; Hypertension; aj - Immunization history:: Adult Immunizations up to date. - Social history:: Smoking status: Patient/guardian denies using tobacco. - Ebola Screening: : Patient negative for fever greater than or equal to 101.5 degrees Fahrenheit, and additional compatible Ebola Virus Disease symptoms Patient denies exposure to infectious person Patient denies travel to an Ebola-affected area in the 21 days before illness onset No symptoms or risks identified at this time. Screenin:31 Abuse screen: Denies threats or abuse. Nutritional screening: No deficits noted. tl3 Tuberculosis screening: No symptoms or risk factors identified. Fall Risk None identified. Assessment: 14:31 General: Appears uncomfortable, well groomed, well developed, well nourished, Behavior tl3 is calm, cooperative, appropriate for age. Pain: Complains of pain in sinus pain. Neuro: Level of Consciousness is awake, alert, obeys commands, Oriented to person, place, time, situation, Appropriate for age. Cardiovascular: Heart tones S1 S2 present Patient's skin is warm and dry. Respiratory: Airway is patent Respiratory effort is even, unlabored, Respiratory pattern is regular, symmetrical, Breath sounds are clear bilaterally. Parent/caregiver reports the patient having cough that is productive. GI: Reports diarrhea, nausea. : No signs and/or symptoms were reported regarding the genitourinary system. EENT: Reports nasal congestion nasal discharge. Derm: No signs and/or symptoms reported regarding the dermatologic system. Musculoskeletal: No signs and/or symptoms reported regarding the musculoskeletal system. 16:02 Reassessment: Patient appears in no apparent distress at this time. No changes from tl3 previously documented assessment. Patient and/or family updated on plan of care and expected duration. Pain level reassessed. Patient is alert, oriented x 3, equal unlabored respirations, skin warm/dry/pink. no needs at this time. 17:15 Reassessment: Patient appears in no apparent distress at this time. Patient and/or mg2 family updated on plan of care and expected duration. Pain level reassessed. Patient is alert, oriented x 3, equal unlabored respirations, skin warm/dry/pink. 17:34 Reassessment: No changes from previously documented assessment. Patient and/or family tl3 updated on plan of care and expected duration. Pain level reassessed. Patient is alert, oriented x 3, equal unlabored respirations, skin warm/dry/pink. pt repositioned in chair with foot stool. Vital Signs: 13:43 BP 131 / 70; Pulse 88; Resp 16; Temp 97.0; Pulse Ox 93% on R/A; Weight 84.82 kg; Height aj 5 ft. 10 in. (177.80 cm); 14:31 BP 139 / 113; Pulse 63; Resp 20; Pulse Ox 98% on R/A; tl3 16:02 BP 121 / 61; Pulse 66; Resp 18; Pulse Ox 96% on R/A; tl3 17:15 BP 113 / 66; Pulse 71; Resp 18; Pulse Ox 95% on R/A; mg2 17:34 BP 107 / 62; Pulse 75; Resp 18; Pulse Ox 96% on R/A; tl3 13:43 Body Mass Index 26.83 (84.82 kg, 177.80 cm) aj ED Course: 13:38 Patient arrived in ED. mr 13:39 Klaus Lema DO is Private Physician. mr 13:40 Triage completed. aj 13:43 Arm band placed on left wrist. Patient placed in an exam room. aj 13:46 Jamir Millard PA is PHCP. jmm 13:46 Sunny Urias MD is Attending Physician. jmm 14:31 Elisha Valentine, JEREMIAH is Primary Nurse. tl3 14:31 Patient moved to radiology via wheelchair. tl3 14:31 Patient has correct armband on for positive identification. Bed in low position. Call tl3 light in reach. Side rails up X 1. Pulse ox on. NIBP on. Door closed. Lights dimmed. Warm blanket given. Pillow given. 14:31 No provider procedures requiring assistance completed. tl3 14:36 Chest Pa And Lat (2 Views) XRAY In Process Unspecified. EDMS 17:50 Klaus Lema DO is Referral Physician. jmm 17:53 IV discontinued, intact, bleeding controlled, No redness/swelling at site. Pressure tl3 dressing applied. Administered Medications: 14:45 Drug: DuoNeb (3:1) (2.5 mg - 0.5 mg) 3 ml Route: Nebulizer; tl3 16:03 Follow up: Response: No adverse reaction tl3 16:42 Drug: Magnesium Sulfate 1 grams Route: IVPB; Infused Over: 1 hrs; Site: left mg2 antecubital; 17:54 Follow up: IV Status: Completed infusion; IV Intake: 100ml tl3 17:20 Drug: morphine 2 mg Route: IVP; Infused Over: 3 mins; Site: left antecubital; tl3 17:54 Follow up: Response: No adverse reaction; Pain is decreased tl3 17:20 Drug: Zofran 4 mg Route: IVP; Infused Over: 2 mins; Site: left antecubital; tl3 17:53 Follow up: Response: No adverse reaction tl3 Intake: 17:54 IV: 100ml; Total: 100ml. tl3 Outcome: 17:50 Discharge ordered by . janet 18:10 Discharged to home ambulatory. tl3 18:10 Condition: stable 18:10 Instructed on discharge instructions, follow up and referral plans. medication usage, Demonstrated understanding of instructions, follow-up care, medications, Prescriptions given X 1. 18:13 Patient left the ED. tl3 Signatures: Dispatcher [employer] EDMargo Alatorre RN RN aj Mickail, Joel, PA PA jmm Rivera, Mary mr Lowrey, Tammy, RN RN tl3 Demetrio Pollack RN RN mg2 Corrections: (The following items were deleted from the chart) 13:40 13:40 Acuity: MENDY 4 aj aj
--- NOTE | 2018-06-02 17:51 | EDPHYS ---
Physician Documentation [facility] Name: Anthony Griffin Age: 62 yrs Sex: Male : 1955 Arrival Date: 06/02/2018 Time: 13:38 Bed 26 Private MD: Klaus Lema ED Physician Sunny Urias HPI: 06/02 13:53 This 62 yrs old Male presents to ER via Ambulatory with complaints of Sinus jmm Congestion. 13:53 The patient or guardian reports cough. Onset: The symptoms/episode began/occurred jmm gradually, 1 week(s) ago. Modifying factors: The symptoms are alleviated by nothing, the symptoms are aggravated by nothing. Associated signs and symptoms: Pertinent positives: cough, congestion. This is a 62 year old male with clay history of HTN, HLP that presents to the ED with cough, congestion and frontal sinus pressure for the past week. Patient denies chest pain or shortness of breath. . Historical: - Allergies: 13:43 No Known Allergies; aj - Home Meds: 13:43 clopidogrel 75 mg oral tab 1 tab once daily [Active]; ramipril 10 mg Oral cap 1 cap aj once daily [Active]; amlodipine 5 mg tab 1 tab once daily [Active]; sertraline 50 mg oral tab 1 tab once daily [Active]; pravastatin 80 mg oral tab 1 tab once daily [Active]; donepezil 10 mg oral TbDL 1 tab once daily [Active]; memantine 10 mg oral tab daily [Active]; aspirin 81 mg Oral TbEC 1 tab once daily [Active]; - PMHx: 13:43 Dementia; Hyperlipidemia; CVA; Hypertension; aj - Immunization history:: Adult Immunizations up to date. - Social history:: Smoking status: Patient/guardian denies using tobacco. - Ebola Screening: : Patient negative for fever greater than or equal to 101.5 degrees Fahrenheit, and additional compatible Ebola Virus Disease symptoms Patient denies exposure to infectious person Patient denies travel to an Ebola-affected area in the 21 days before illness onset No symptoms or risks identified at this time. ROS: 13:53 Eyes: Negative for injury, pain, redness, and discharge. jmm 13:53 Cardiovascular: Negative for chest pain, palpitations, and edema. 13:53 Abdomen/GI: Negative for abdominal pain, nausea, vomiting, diarrhea, and constipation, Back: Negative for injury and pain. 13:53 Constitutional: Positive for malaise. 13:53 ENT: Positive for rhinorrhea, sinus congestion. 13:53 Respiratory: Positive for cough. 13:53 Neuro: Positive for headache. 13:53 All other systems are negative. Exam: 13:53 Eyes: EOMI, no conjunctival erythema appreciated [facility] 13:53 Neck: Trachea midline, Supple Chest/axilla: Normal chest wall appearance and motion. 13:53 Constitutional: The patient appears in no acute distress, alert, awake. 13:53 Head/face: Sinus tenderness, that is moderate, is located over the right frontal sinus and left frontal sinus. 13:53 ENT: Posterior pharynx: erythema, that is mild. 13:53 Cardiovascular: Rate: normal, Rhythm: regular, Pulses: no pulse deficits are appreciated. 13:53 Respiratory: the patient does not display signs of respiratory distress, Respirations: normal, Breath sounds: are clear throughout. 13:53 Abdomen/GI: Inspection: abdomen appears normal, Bowel sounds: normal, Palpation: abdomen is soft and non-tender, in all quadrants, soft. 13:53 Back: ROM is normal, CVA tenderness, is absent, is noted bilaterally. 13:53 Musculoskeletal/extremity: ROM: intact in all extremities. 13:53 Skin: Appearance: Color: normal in color. 13:53 Neuro: Orientation: is normal, Mentation: is normal, Memory: is normal. 13:53 Psych: Behavior/mood is pleasant, cooperative. Vital Signs: 13:43 BP 131 / 70; Pulse 88; Resp 16; Temp 97.0; Pulse Ox 93% on R/A; Weight 84.82 kg; Height aj 5 ft. 10 in. (177.80 cm); 14:31 BP 139 / 113; Pulse 63; Resp 20; Pulse Ox 98% on R/A; tl3 16:02 BP 121 / 61; Pulse 66; Resp 18; Pulse Ox 96% on R/A; tl3 17:15 BP 113 / 66; Pulse 71; Resp 18; Pulse Ox 95% on R/A; mg2 17:34 BP 107 / 62; Pulse 75; Resp 18; Pulse Ox 96% on R/A; tl3 13:43 Body Mass Index 26.83 (84.82 kg, 177.80 cm) aj MDM: 13:53 Patient medically screened. [facility] 16:25 Data reviewed: vital signs, nurses notes. Counseling: I had a detailed discussion with [facility] the patient and/or guardian regarding: the historical points, exam findings, and any diagnostic results supporting the discharge/admit diagnosis, the need for outpatient follow up. 18:57 Data reviewed: lab test result(s), EKG, radiologic studies, plain films. Response to [facility] treatment: the patient's symptoms have markedly improved after treatment. ED course: I discussed the patient with Dr. Urias whom recommends saline/intranasal steroids. . 06/02 13:53 Order name: Basic Metabolic Panel; Complete Time: 15:57 [facility] 06/02 13:53 Order name: CBC with Diff; Complete Time: 15:57 [facility] 06/02 13:53 Order name: LFT's; Complete Time: 15:57 [facility] 06/02 13:53 Order name: Magnesium; Complete Time: 15:57 [facility] 06/02 13:53 Order name: NT PRO-BNP; Complete Time: 15:57 [facility] 06/02 13:53 Order name: PT-INR; Complete Time: 15:57 [facility] 06/02 13:53 Order name: Chest Pa And Lat (2 Views) XRAY; Complete Time: 15:24 [facility] 06/02 13:53 Order name: Troponin (emerg Dept Use Only); Complete Time: 15:57 [facility] 06/02 13:53 Order name: Influenza Screen (a \T\ B); Complete Time: 15:57 [facility] 06/02 13:53 Order name: Procalcitonin; Complete Time: 16:13 [facility] 06/02 13:53 Order name: EKG; Complete Time: 13:55 [facility] 06/02 13:53 Order name: Cardiac monitoring; Complete Time: 16:43 [facility] 06/02 13:53 Order name: EKG - Nurse/Tech; Complete Time: 16:43 [facility] 06/02 13:53 Order name: IV Saline Lock; Complete Time: 15:05 [facility] 06/02 13:53 Order name: Labs collected and sent; Complete Time: 15:05 [facility] 06/02 13:53 Order name: O2 Per Protocol; Complete Time: 14:36 [facility] 06/02 13:53 Order name: O2 Sat Monitoring; Complete Time: 14:35 [facility] Administered Medications: 14:45 Drug: DuoNeb (3:1) (2.5 mg - 0.5 mg) 3 ml Route: Nebulizer; tl3 16:03 Follow up: Response: No adverse reaction tl3 16:42 Drug: Magnesium Sulfate 1 grams Route: IVPB; Infused Over: 1 hrs; Site: left mg2 antecubital; 17:54 Follow up: IV Status: Completed infusion; IV Intake: 100ml tl3 17:20 Drug: morphine 2 mg Route: IVP; Infused Over: 3 mins; Site: left antecubital; tl3 17:54 Follow up: Response: No adverse reaction; Pain is decreased tl3 17:20 Drug: Zofran 4 mg Route: IVP; Infused Over: 2 mins; Site: left antecubital; tl3 17:53 Follow up: Response: No adverse reaction tl3 Disposition: 18:36 Co-signature as Attending Physician, Sunny Urias MD. Disposition: 06/02/18 17:50 Discharged to Home. Impression: Acute frontal sinusitis, unspecified, Acute upper respiratory infection, unspecified. - Condition is Stable. - Discharge Instructions: Sinusitis, Adult, Viral Respiratory Infection. - Prescriptions for Flonase Allergy Relief 50 mcg/actuation Nasal spray,suspension - inhale 2 spray by INTRANASAL route once daily; 1 bottle. - Medication Reconciliation Form, Thank You Letter, Antibiotic Education, Prescription Opioid Use form. - Follow up: Klaus Lema DO; When: 2 - 3 days; Reason: Recheck today's complaints, Continuance of care, Re-evaluation by your physician. Signatures: Dispatcher [employer] Margo Alatorre RN RN aj Mickail, Joel, PA PA Sunny Peterson MD MD Elisha Valentine RN RN tl3 Demetrio Pollack RN RN mg2 Corrections: (The following items were deleted from the chart) 18:13 17:50 06/02/2018 17:50 Discharged to Home. Impression: Acute frontal sinusitis, tl3 unspecified; Acute upper respiratory infection, unspecified. Condition is Stable. Forms are Medication Reconciliation Form, Thank You Letter, Antibiotic Education, Prescription Opioid Use. Follow up: Klaus Lema; When: 2 - 3 days; Reason: Recheck today's complaints, Continuance of care, Re-evaluation by your physician. janet
[2018-06-02 19:06] VITALS: TEMP 97
[2018-06-02 19:10] VITALS: BP 107/62; O2SAT 96
--- NOTE | 2018-06-03 06:45 | EKG ---
Test Date: 2018-06-02 Test Time: 15:37:50 Accounting Administrative Assistant: TL MEASUREMENT RESULTS: Intervals: Rate: 77 NV: 142 QRSD: 96 QT: 416 QTc: 470 [place]: P: 30 NV: 142 QRS: -2 T: 12 INTERPRETIVE STATEMENTS: Normal sinus rhythm with sinus arrhythmia Minimal voltage criteria for LVH, may be normal variant Borderline ECG Compared to ECG 09/15/1994 09:53:00 Left ventricular hypertrophy now present Electronically Signed On 06-03-18 06:44:51 CDT by Osmar Messina
== END 2018-06-02 18:13 | disposition home or self-care (01) ==
LOC: ER 13:34
DX: J01.10 Acute frontal sinusitis, unspecified (principal); I10 Essential (primary) hypertension; E78.5 Hyperlipidemia, unspecified; Z79.82 Long term (current) use of aspirin; Z86.73 Personal history of transient ischemic attack (TIA), and cerebral infarction without residual deficits
CPT/HCPCS: 36415; 71046; 80048; 80076; 83735; 83880; 84145; 84484; 85025; 85610; 87804 ×2; 93005; 94640; 96365; 96375; 99284; J2405; J3475

== ENCOUNTER 2018-07-06 23:06 | Emergency (ER) | payer OTHER ==
--- OUTSIDE RECORDS SUMMARY | 2018-07-06 23:09 | XMS REPORT | Clinical Summary ---
:1955 Author Organization [facility] Address [address] [place] [address] Care Team Providers Name Role Phone Klaus [...] PAD (peripheral artery disease) (Primary Dx) after 07/05/2017 Social History Tobacco Use Types Packs/Day Years [...] 08/13/2018 Appointment Procedural Cardiology Familia Pierre MD [address] [facility] [address] [place] [address] 08/13/2018 Office Visit Cardiovascular Familia Pierre MD [address] [facility] [address] [place] [address] Health Maintenance Due Date Last Done [...] are in BILATERAL the results section. after 07/05/2017 Results Us ankle brachial index (05/04/2018 10:10 AM) Narrative Performed At [facility] Lower Extremity Arterial Physiologic Report [address] [place] Pat.Name:Gerardo GRIFFIN.ID:[id number] .Date: 05/04/2018 Refer.MD:FAMILIA PIERRE MD Exam Time: 8:36:00 AMStudy Type:Physiologic Leg DOBAge:1955,62Y Sex: MALE Sonogrphr: Doc Rajan RDMS, T CPT - 4: 32963 Echo Event ID:[id number] Order ID:[id number] Reason for Study:Patient presents with painful area [...] VASCULAR LABORATORY Lower Extremity Arterial Physiologic Report [address] [place] [address] Pat.Name: DHEERAJ GRIFFIN Pat.ID: [id number] .Date: 05/04/2018 Refer.MD: FAMILIA PIERRE MD Exam Time: 8:36:00 AM Study Type:Physiologic Leg Age: 1 1955,62Y Sex: MALE Sonogrphr: Doc Rajan RDMS, T CPT - 4: 43865 Echo Event ID:[id number] Order ID: [id number] Reason for Study:Patient presents with painful area [...] Organization Address City/State/Zipcode Phone Number [facility] [address] [place] [address] PV duplex arterial lower extremity (05/04/2018 10:10 AM) Narrative Performed At [facility] Lower Extremity Arterial Duplex Report [id number] [facility] [address] [place], [place] [id number] Pat.Name:Gerardo GRIFFIN.ID:[id number] .Date: 05/04/2018 Refer.MD:FAMILIA PIERRE MD Exam Time: 8:51:00 AMStudy Type:LE Arterial DOBAge:1955,62Y Sex: MALE Sonogrphr: Doc Rajan RDMS, T CPT - 4: [id number] Echo Event ID:[id number] Order ID:[id number] Reason for Study:Patient presents with painful area [...] in proximal right AT. MEASUREMENTS: DOPPLER Left MAXILLOFACIAL SURGEON Prox MAXILLOFACIAL SURGEON Prox PSV84 cm/s Right MAXILLOFACIAL SURGEON Prox MAXILLOFACIAL SURGEON Prox PSV15 cm/s Left NATIONAL FLATBED TRUCK DRIVER Mid NATIONAL FLATBED TRUCK DRIVER Mid LIL715 cm/s Right NATIONAL FLATBED TRUCK DRIVER Mid NATIONAL FLATBED TRUCK DRIVER Mid PSV 67 cm/s Left MAXILLOFACIAL SURGEON Distal MAXILLOFACIAL SURGEON Distal PSV78 cm/s Right MAXILLOFACIAL SURGEON Distal MAXILLOFACIAL SURGEON Distal PSV15 cm/s Left MAXILLOFACIAL SURGEON Mid MAXILLOFACIAL SURGEON Mid PSV 55 cm/s Right MAXILLOFACIAL SURGEON Mid MAXILLOFACIAL SURGEON Mid PSV 13 cm/s Left Peroneal Dist Peroneal Dist P40 cm/s Left SFA Mid SFA Mid SOT909 cm/s Right SFA Mid SFA Mid PSV 84 cm/s Left HEIDI Prox HEIDI Prox PSV49 cm/s Left HEIDI Mid HEIDI Mid PSV 57 cm/s Right HEIDI Mid HEIDI Mid PSV 56 cm/s Left HIEDI Distal HEIDI Distal PSV51 cm/s Right HEIDI [...] LABORATORY Lower Extremity Arterial Duplex Report [address] [facility] [address], [place] [address] Pat.Name: DHEERAJ GRIFFIN Pat.ID: [id number] .Date: 05/04/2018 Refer.MD: FAMILIA PIERRE MD Exam Time: 8:51:00 AM Study Type:LE Arterial Age: 1 1955,62Y Sex: MALE Sonogrphr: Doc Rajan RDMS, RVT CPT - 4: [id number] Echo Event ID:[id number] Order ID: [id number] Reason for Study:Patient presents with painful area [...] in proximal right AT. MEASUREMENTS: DOPPLER Left MAXILLOFACIAL SURGEON Prox MAXILLOFACIAL SURGEON Prox PSV 84 cm/s Right MAXILLOFACIAL SURGEON Prox MAXILLOFACIAL SURGEON Prox PSV 15 cm/s Left NATIONAL FLATBED TRUCK DRIVER Mid NATIONAL FLATBED TRUCK DRIVER Mid PSV 147 cm/s Right NATIONAL FLATBED TRUCK DRIVER Mid NATIONAL FLATBED TRUCK DRIVER Mid PSV 67 cm/s Left MAXILLOFACIAL SURGEON Distal MAXILLOFACIAL SURGEON Distal PSV 78 cm/s Right MAXILLOFACIAL SURGEON Distal MAXILLOFACIAL SURGEON Distal PSV 15 cm/s Left MAXILLOFACIAL SURGEON Mid MAXILLOFACIAL SURGEON Mid PSV 55 cm/s Right MAXILLOFACIAL SURGEON Mid MAXILLOFACIAL SURGEON Mid PSV 13 cm/s Left Peroneal Dist Peroneal Dist P 40 cm/s Left SFA Mid SFA Mid PSV 114 cm/s Right SFA Mid SFA Mid PSV 84 cm/s Left HEIDI Prox HEIDI Prox PSV 49 cm/s Left HEIDI Mid HEIDI Mid PSV 57 cm/s Right HEIDI Mid HEIDI Mid PSV 56 cm/s Left HEDII Distal HEIDI Distal PSV 51 cm/s Right [...] Organization Address City/State/Zipcode Phone Number [facility] [address] [place] [address] after 07/05/2017 Insurance Payer Benefit Plan / Group Subscriber ID Type Phone Address [employer] MEDICARE [employer] MED[employer]ARE DIRECT [facility] xxxxxxxxx HMO [phone] [place] [address]
--- NOTE | 2018-07-07 00:53 | ER ---
Nurse's Notes [facility] Name: Anthony Griffin Age: 62 yrs Sex: Male : 1955 Arrival Date: 07/06/2018 Time: 23:08 Bed 23 Private MD: Klaus Lema Diagnosis: Contusion right knee. 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 Pt now C/O pain in R knee and limited movement. Transition of care: patient was not received from another setting of care. Onset of symptoms was July 06, 2018. Risk Assessment: Do you want to hurt yourself or someone else? Patient reports no desire to harm self or others. Initial Sepsis Screen: Does the patient meet any 2 criteria? No. Patient's initial sepsis screen is negative. Does the patient have a suspected source of infection? No. Patient's initial sepsis screen is negative. Care prior to arrival: None. 23:24 Method Of Arrival: Ambulatory 23:24 Acuity: MENDY 4 Triage Assessment: 23:26 General: Appears in no apparent distress. Behavior is calm, cooperative, appropriate wh for age. Pain: Complains of pain in Right Knee Pain does not radiate. Pain currently is 7 out of 10 on a pain scale. Pain began 4 hours ago. Aggravated by increased activity, weight bearing. Musculoskeletal: Range of motion: limited in right knee. Injury Description: Bruise. - Immunization history:: Adult Immunizations unknown. - Social history:: Smoking status: Patient/guardian denies using tobacco. - Ebola Screening: : Patient negative for fever greater than or equal to 101.5 degrees Fahrenheit, and additional compatible Ebola Virus Disease symptoms Patient denies exposure to infectious person. Screenin:26 Abuse screen: Denies threats or abuse. Denies injuries from another. Nutritional mg2 screening: No deficits noted. Tuberculosis screening: No symptoms or risk factors identified. Fall Risk Fall in past 12 months (25 points). Assessment: 23:34 General: Appears in no apparent distress. Behavior is calm, cooperative, appropriate wh for age. Pain: Complains of pain in right knee Pain does not radiate. Pain currently is 7 out of 10 on a pain scale. Quality of pain is described as aching, Pain began 4 hours ago. Aggravated by increased activity, weight bearing. Neuro: Level of Consciousness is awake, alert, obeys commands, Oriented to person, place, time, situation, Appropriate for age Manager Green are equal bilaterally. Cardiovascular: Capillary refill < 3 seconds. Respiratory: Airway is patent Respiratory effort is even, unlabored, Respiratory pattern is regular, symmetrical. GI: Abdomen is flat, Abd is soft and non tender. : No signs and/or symptoms were reported regarding the genitourinary system. EENT: No signs and/or symptoms were reported regarding the EENT system. Derm: Skin is intact, is healthy with good turgor, Skin is pink, warm \T\ dry. normal. Musculoskeletal: Range of motion: limited in right knee. 07/07 00:32 Reassessment: Patient appears in no apparent distress at this time. Patient and/or family updated on plan of care and expected duration. Pain level reassessed. Patient is alert, oriented x 3, equal unlabored respirations, skin warm/dry/pink. Vital Signs: 07/06 23:27 BP 150 / 62; Pulse 89; Resp 18; Temp 97.9; Pulse Ox 96% on R/A; 07/07 00:24 BP 103 / 73; Pulse 66; Resp 16; Pulse Ox 98% on R/A; ks ED Course: 07/06 23:08 Patient arrived in ED. al2 23:09 Klaus Lema DO is Private Physician. al2 23:12 Joe Richard MD is Attending Physician. pkl 23:12 Alonso Santillan is Primary Nurse. 23:26 Triage completed. 23:27 Patient has correct armband on for positive identification. Pulse ox on. NIBP on. Door mg2 closed. Warm blanket given. Ice pack to injury. 23:30 Patient Ice pack on R Knee. 07/07 00:51 Jarad Kapoor MD is Referral Physician. pkl 01:00 Knee Right 3 View XRAY In Process Unspecified. EDMS 01:14 No provider procedures requiring assistance completed. Patient did not have IV access during this emergency room visit. Administered Medications: No medications were administered Outcome: 00:52 Discharge ordered by . pkl 01:14 Discharged to home ambulatory. 01:14 Condition: good 01:14 Discharge instructions given to patient, Instructed on discharge instructions, follow up and referral plans. no drinking with medication, no driving heavy equipment, POC Knee Contusion Demonstrated understanding of instructions, follow-up care, medications, POC Prescriptions given X 2. 01:15 Patient left the ED. wh Signatures: Dispatcher [employer] EDJoe Hauser MD MD pkl Thompson, Moriah mt Habalo, Winsy wh Love, Johanny wheeler2 Demetrio Pollack, RN RN mg2
--- NOTE | 2018-07-07 00:53 | EDPHYS ---
Physician Documentation [facility] Name: Anthony Griffin Age: 62 yrs Sex: Male : 1955 Arrival Date: 07/06/2018 Time: 23:08 Bed 23 Private MD: Klaus Lema ED Physician Joe Richard HPI: 07/06 23:30 This 62 yrs old Male presents to ER via Ambulatory with complaints of Knee pkl Injury. 23:30 The patient presents with an injury, pain, that is acute. The complaints affect the pkl right knee. Context: resulted from the patient falling, while standing. Onset: The symptoms/episode began/occurred just prior to arrival, 5 hour(s) ago. Associated signs and symptoms: The patient has no apparent associated signs or symptoms. - Immunization history:: Adult Immunizations unknown. - Social history:: Smoking status: Patient/guardian denies using tobacco. - Ebola Screening: : Patient negative for fever greater than or equal to 101.5 degrees Fahrenheit, and additional compatible Ebola Virus Disease symptoms Patient denies exposure to infectious person. ROS: 23:30 Eyes: Negative for injury, pain, redness, and discharge, ENT: Negative for injury, pkl pain, and discharge, Neck: Negative for injury, pain, and swelling, Cardiovascular: Negative for chest pain, palpitations, and edema, Respiratory: Negative for shortness of breath, cough, wheezing, and pleuritic chest pain, Abdomen/GI: Negative for abdominal pain, nausea, vomiting, diarrhea, and constipation, Back: Negative for injury and pain, : Negative for injury, bleeding, discharge, and swelling, Skin: Negative for injury, rash, and discoloration, Neuro: Negative for headache, weakness, numbness, tingling, and seizure. 23:30 MS/extremity: Positive for pain, swelling, tenderness, of the right knee. Exam: 23:30 Head/Face: Normocephalic, atraumatic. Eyes: Pupils equal round and reactive to light, pkl extra-ocular motions intact. Lids and lashes normal. Conjunctiva and sclera are non-icteric and not injected. Cornea within normal limits. Periorbital areas with no swelling, redness, or edema. ENT: Nares patent. No nasal discharge, no septal abnormalities noted. Tympanic membranes are normal and external auditory canals are clear. Oropharynx with no redness, swelling, or masses, exudates, or evidence of obstruction, uvula midline. Mucous membranes moist. Neck: Trachea midline, no thyromegaly or masses palpated, and no cervical lymphadenopathy. Supple, full range of motion without nuchal rigidity, or vertebral point tenderness. No Meningismus. Chest/axilla: Normal chest wall appearance and motion. Nontender with no deformity. No lesions are appreciated. Cardiovascular: Regular rate and rhythm with a normal S1 and S2. No gallops, murmurs, or rubs. Normal PMI, no JVD. No pulse deficits. Respiratory: Lungs have equal breath sounds bilaterally, clear to auscultation and percussion. No rales, rhonchi or wheezes noted. No increased work of breathing, no retractions or nasal flaring. Abdomen/GI: Soft, non-tender, with normal bowel sounds. No distension or tympany. No guarding or rebound. No evidence of tenderness throughout. Back: No spinal tenderness. No costovertebral tenderness. Full range of motion. Skin: Warm, dry with normal turgor. Normal color with no rashes, no lesions, and no evidence of cellulitis. Neuro: Awake and alert, GCS 15, oriented to person, place, time, and situation. Cranial nerves II-XII grossly intact. Motor strength 5/5 in all extremities. Sensory grossly intact. Cerebellar exam normal. Normal gait. 23:30 Musculoskeletal/extremity: Extremities: grossly normal except: noted in the right knee: pain, swelling, tenderness. Vital Signs: 23:27 BP 150 / 62; Pulse 89; Resp 18; Temp 97.9; Pulse Ox 96% on R/A; wh 07/07 00:24 BP 103 / 73; Pulse 66; Resp 16; Pulse Ox 98% on R/A; mt MDM: 07/06 23:12 Patient medically screened. pkl 07/07 00:51 Data reviewed: vital signs, nurses notes, radiologic studies, plain films. pk 07/06 23:30 Order name: Knee Right 3 View XRAY pkl 07/07 00:50 Order name: [place] Wrap; Complete Time: 00:52 pkl Administered Medications: No medications were administered Disposition: 07/07/18 00:52 Discharged to Home. Impression: Contusion right knee. Possible ligament injury right knee. - Condition is Stable. - Discharge Instructions: Knee Pain, Knee Pain, Xodu-[id number]. - Prescriptions for Ultram 50 mg Oral Tablet - take 1 tablet by ORAL route every 8 hours As needed; 20 tablet. - Medication Reconciliation Form, Thank You Letter, Antibiotic Education, Prescription Opioid Use form. - Follow up: Jarad Kapoor MD; When: 2 - 3 days; Reason: Re-evaluation by your physician. - Problem is new. - Symptoms are unchanged. Signatures: Dispatcher [employer] EDAR Joe Richard MD MD pkAlonso Sykes Corrections: (The following items were deleted from the chart) 01:15 00:52 07/07/2018 00:52 Discharged to Home. Impression: Contusion right knee. Possible wh ligament injury right knee. Condition is Stable. Forms are Medication Reconciliation Form, Thank You Letter, Antibiotic Education, Prescription Opioid Use. Follow up: Dr. Jarad Kapoor; When: 2 - 3 days; Reason: Re-evaluation by your physician. Problem is new. Symptoms are unchanged. pkl
[2018-07-07 01:20] VITALS: TEMP 97.9
[2018-07-07 01:21] VITALS: BP 103/73; O2SAT 98
--- NOTE | 2018-07-07 08:08 | RAD REPORT ---
EXAM DESCRIPTION: RAD - Knee Right 3 View - 07/07/2018 1:00 am CLINICAL HISTORY: Right knee pain status post fall FINDINGS: No fracture or dislocation is seen. Bones are osteoporotic If the patient continues have symptoms to suggest an occult fracture, ligamentous or meniscal injury then an MRI would be recommended.
== END 2018-07-07 01:15 | disposition home or self-care (01) ==
LOC: ER 23:06
DX: S80.01XA Contusion of right knee, initial encounter (principal); W19.XXXA Unspecified fall, initial encounter; Y93.9 Activity, unspecified; Y92.9 Unspecified place or not applicable
CPT/HCPCS: 99283

== ENCOUNTER 2018-08-03 16:17 | Emergency (ER) | payer OTHER ==
--- OUTSIDE RECORDS SUMMARY | 2018-08-03 16:19 | XMS REPORT | Clinical Summary ---
:1955 Author Organization [facility] Address [address] [place] [address] Care Team Providers Name Role Phone Torey Klaus Garcia DO Primary Care Provider Allergies No Known Allergies Medications Medication Sig Dispensed Refills Start Date End Date Status albuterol (PROAIR Inhale 1 puff. 0 Active HFA,PROVENTIL HFA,VENTOLIN HFA) 90 mcg/actuation inhaler aspirin 81 mg Chew 81 mg. 0 Active chewable tablet clopidogrel Take 75 mg by 0 Active (PLAVIX) 75 mg mouth. tablet amLODIPine Take 5 mg by 0 Active (NORVASC) 5 mg mouth daily. tablet traMADol (ULTRAM) Take 50 mg by 0 Active 50 mg tablet mouth every 6 (six) hours as needed for moderate pain. sertraline Take 50 mg by 0 Active (ZOLOFT) 50 MG mouth daily. tablet pravastatin Take 40 mg by 0 Active (PRAVACHOL) 40 MG mouth daily. tablet lidocaine-prilocai Apply topically 30 g 0 07/30/2018 Active ne (EMLA) 2.5-2.5 every 12 % cream (twelve) hours as needed for mild pain. Apply to right groin area for pain every 12 hrs as needed lidocaine Place 1 patch 30 patch 0 04/30/2018 05/30/2018 (LIDODERM) 5 % on the skin daily for 30 days. Remove & Discard patch within 12 hours for Right groin pain lidocaine-prilocai Apply topically 30 g 0 05/14/2018 07/30/2018 Discontinued ne (EMLA) 2.5-2.5 every 12 % cream (twelve) hours as needed for mild pain. Apply to right groin area for pain every 12 hrs as needed Active Problems Not on file Encounters Date Type Specialty Care Team Description 07/30/2018 Refill Cardiovascular Martha Montemayor, RN 05/14/2018 Office Visit Cardiovascular Familia Pierre MD PAD (peripheral artery disease) (Primary Dx) 05/14/2018 Orders Only Cardiovascular Martha Montemayor, JEREMIAH 05/08/2018 Orders Only Cardiovascular Martha Montemayor, JEREMIAH 05/03/2018 Telephone Cardiovascular Anne Owens 05/01/2018 Telephone Cardiovascular Martha Montemayor RN 04/30/2018 Telephone Cardiovascular Barbie Carlton RN 04/30/2018 Orders Only Cardiovascular Martha Montemayor, JEREMIAH 04/18/2018 Office Visit Cardiovascular Familia Pierre MD PAD (peripheral artery disease) (Primary Dx) after 08/02/2017 Social History Tobacco Use Types Packs/Day Years Used Date Former Smoker Quit: 04/18/2006 Smokeless Tobacco: Never Used Sex Assigned at Date Recorded Not on file Job Start Date Occupation Industry Not on file Not on file Not on file Travel History Travel Start Travel End No recent travel history available. Last Filed Vital Signs Vital Sign Reading [...] 08/13/2018 Appointment Procedural Cardiology Familia Pierre MD [address] [facility] [address] [place] [address] 08/13/2018 Office Visit Cardiovascular Familia Pierre MD [address] [facility] [address] [place] [address] Health Maintenance Due Date Last Done Comments MMR VACCINES (1 of - Standard 1958 series) COLON CANCER SCREENING 2007 SHINGRIX VACCINE (1 of 2) 2007 ZOSTER VACCINE 2017 INFLUENZA VACCINE 04/04/2018 HEPATITIS B VACCINES Aged Out No longer eligible based on patient's age to complete this topic IPV VACCINES Aged Out No longer eligible based on patient's age to complete this topic MENINGOCOCCAL VACCINE Aged Out No longer eligible based on patient's age to complete this topic VARICELLA VACCINES Aged Out No longer eligible based on patient's age to complete this topic Procedures Procedure Name Priority Date/Time Associated Diagnosis Comments US ANKLE BRACHIAL Routine 05/04/2018 10:10 AM PAD (peripheral Results for this INDEX CDT artery disease) procedure are in the results section. US DUPLEX ARTERIAL Routine 05/04/2018 10:10 AM PAD (peripheral Results for this LOWER EXTREMITY CDT artery disease) procedure are in BILATERAL the results section. after 08/02/2017 Results Us ankle brachial index (05/04/2018 10:10 AM CDT) Narrative Performed At [facility] Lower Extremity Arterial Physiologic Report [address] [place] [address] [facility].Name:Gerardo GRIFFIN.ID:[id number] .Date: 05/04/2018 Refer.MD:FAMILIA PIERRE MD Exam Time: 8:36:00 AMStudy Type:Physiologic Leg DOBAge:1955,62Y Sex: MALE Sonogrphr: Doc Rajan RDMS, T CPT - 4: 29279 Echo Event ID:[id number] Order ID:[id number] Reason for Study:Patient presents with painful area [...] VASCULAR LABORATORY Lower Extremity Arterial Physiologic Report [address] [place] [address] Pat.Name: DHEERAJ GRIFFIN Pat.ID: [id number] .Date: 05/04/2018 Refer.MD: FAMILIA PIERRE MD Exam Time: 8:36:00 AM Study Type:Physiologic Leg Age: 1 1955,62Y Sex: MALE Sonogrphr: Doc Rajan RDMS, T CPT - 4: 43220 Echo Event ID:[id number] Order ID: [id number] Reason for Study:Patient presents with painful area [...] RPVI Performing Organization Address City/State/Zipcode Phone Number [facility] [address] [place] [address] PV duplex arterial lower extremity (05/04/2018 10:10 AM CDT) Narrative Performed At [facility] Lower Extremity Arterial Duplex Report [address] [place] [address] [facility].Name:Gerardo GRIFFIN.ID:[id number] .Date: 05/04/2018 Refer.MD:FAMILIA PIERRE MD Exam Time: 8:51:00 AMStudy Type:LE Arterial DOBAge:1955,62Y Sex: MALE Sonogrphr: Doc Rajan RDMS, RVT CPT - 4: 08824 Echo Event ID:[id number] Order ID:[id number] Reason for Study:Patient presents with painful area [...] in proximal right AT. MEASUREMENTS: DOPPLER Left CUSTOMER SERVICE ASSISTANT Prox CUSTOMER SERVICE ASSISTANT Prox PSV84 cm/s Right CUSTOMER SERVICE ASSISTANT Prox CUSTOMER SERVICE ASSISTANT Prox PSV15 cm/s Left SUPERVISOR KNITTING Mid SUPERVISOR KNITTING Mid OCY685 cm/s Right SUPERVISOR KNITTING Mid SUPERVISOR KNITTING Mid PSV 67 cm/s Left CUSTOMER SERVICE ASSISTANT Distal CUSTOMER SERVICE ASSISTANT Distal PSV78 cm/s Right CUSTOMER SERVICE ASSISTANT Distal CUSTOMER SERVICE ASSISTANT Distal PSV15 cm/s Left CUSTOMER SERVICE ASSISTANT Mid CUSTOMER SERVICE ASSISTANT Mid PSV 55 cm/s Right CUSTOMER SERVICE ASSISTANT Mid CUSTOMER SERVICE ASSISTANT Mid PSV 13 cm/s Left Peroneal Dist Peroneal Dist P40 cm/s Left SFA Mid SFA Mid GVH446 cm/s Right SFA Mid SFA Mid PSV [...] LABORATORY Lower Extremity Arterial Duplex Report [address] [facility] [address], [place] [address] Pat.Name: DHEERAJ GRIFFIN Pat.ID: [id number] St.Date: 05/04/2018 Refer.MD: FAMILIA PIERRE MD Exam Time: 8:51:00 AM Study Type:LE Arterial Age: 1 1955,62Y Sex: MALE Sonogrphr: Doc Rajan RDMS, RVT CPT - 4: 33761 Echo Event ID:[id number] Order ID: [id number] Reason for Study:Patient presents with painful area [...] in proximal right AT. MEASUREMENTS: DOPPLER Left CUSTOMER SERVICE ASSISTANT Prox CUSTOMER SERVICE ASSISTANT Prox PSV 84 cm/s Right CUSTOMER SERVICE ASSISTANT Prox CUSTOMER SERVICE ASSISTANT Prox PSV 15 cm/s Left SUPERVISOR KNITTING Mid SUPERVISOR KNITTING Mid PSV 147 cm/s Right SUPERVISOR KNITTING Mid SUPERVISOR KNITTING Mid PSV 67 cm/s Left CUSTOMER SERVICE ASSISTANT Distal CUSTOMER SERVICE ASSISTANT Distal PSV 78 cm/s Right CUSTOMER SERVICE ASSISTANT Distal CUSTOMER SERVICE ASSISTANT Distal PSV 15 cm/s Left CUSTOMER SERVICE ASSISTANT Mid CUSTOMER SERVICE ASSISTANT Mid PSV 55 cm/s Right CUSTOMER SERVICE ASSISTANT Mid CUSTOMER SERVICE ASSISTANT Mid PSV 13 cm/s Left Peroneal Dist [...] Organization Address City/State/Zipcode Phone Number [facility] [address] [place] [address] after 08/02/2017 Insurance Payer Benefit Plan / Group Subscriber ID Type Phone Address UHC MEDICARE UNITED[employer] MEDICARE DIRECT [facility] xxxxxxxxx HMO Advance Directives Patient has advance care planning documents on file. For more information, please contact:Peter Mckinney[address] [place] [address]
[2018-08-03] MEDS ORDERED: ONDANSETRON 4 MG/2 ML VIAL ONE (18:45)
[2018-08-03] MEDS ORDERED: MORPHINE 4 MG/ML SYR ONE (18:45)
[2018-08-03 18:47] LABS: Absolute Lymphocytes (CBC) 2.8 K/uL (0.7-4.9); Absolute Monocytes 0.9 K/uL (0.1-1.3); Absolute Neutrophil 4.9 K/uL (1.8-8.0); Basophils % 0.8 % (0-1.3); Eosinophils % 3.4 % (0-4.4); Hematocrit 43.9 % (39.6-49.0); Lymphocytes % 31.1 % (15.3-44.8); MCH 31.9 pg (27.0-35.0); MCV 92.1 fL (80-100); MPV 8.3 fL (7.6-11.3); RBC Red Blood Cell Count 4.76 M/uL (4.33-5.43)
--- NOTE | 2018-08-03 18:52 | RAD REPORT ---
EXAM DESCRIPTION: CT - Stone Protocol - 08/03/2018 6:25 pm CLINICAL HISTORY: Flank pain. ABD PAIN COMPARISON: Angio Aorta For Dissection dated 04/28/2018 TECHNIQUE: Axial images were obtained without oral or IV contrast. Lack of contrast limits solid org an and vascular assessment. The [id number] spans the entirety of the system partially obscuring uppermost abdomen and lung bases. Coronal reformatted images were obtained and reviewed. All CT scans are performed using dose optimization technique as appropriate and may include automated exposure control or mA/KV adjustment according to patient size. FINDINGS: The lower lung savage are clear. Imaged portions of the liver and spleen show no suspicious findings on non-contrast imaging. Pancreat ic atrophy seen. The adrenal glands are unremarkable. No pathologic lymphadenopathy in the abdomen or pelvis. Small nonobstructing caliceal stones bilaterally. No bowel obstruction, free air, free fluid or abscess. Postsurgical changes are present both inguinal regions.The appendix is not identified as a discrete structure, however, no secondary findings of ap pendicitis are identified. Sigmoid diverticulosis coli without diverticulitis. Moderate L5-S1 spondylosis. IMPRESSION: Small bilateral caliceal stones without hydronephrosis.
[2018-08-03 19:19] LABS: Potassium 3.9 mmol/L (3.5-5.1)
--- NOTE | 2018-08-03 20:33 | ER ---
Nurse's Notes [facility] Name: Anthony Griffin Age: 62 yrs Sex: Male : 1955 Arrival Date: 08/03/2018 Time: 16:33 Bed 18 Private MD: Klaus Lema Diagnosis: Lower abdominal pain, unspecified Presentation: 08/03 17:27 Presenting complaint: Patient states: R groin, RLQ, and R low back pain since Monday, ph also reports N/V and chills. Transition of care: patient was not received from another setting of care. Onset of symptoms was August 03, 2018. Risk Assessment: Do you want to hurt yourself or someone else? Patient reports no desire to harm self or others. Care prior to arrival: None. 17:27 Method Of Arrival: Ambulatory 17:27 Acuity: MENDY 3 ph 18:20 Initial Sepsis Screen: Does the patient meet any 2 criteria? No. Patient's initial em sepsis screen is negative. Does the patient have a suspected source of infection? No. Patient's initial sepsis screen is negative. Historical: - Allergies: 17:30 No Known Allergies; ph - PMHx: 17:30 CVA; Dementia; Hyperlipidemia; Hypertension; ph - Immunization history:: Adult Immunizations up to date. - Social history:: Smoking status: Patient/guardian denies using tobacco. - Ebola Screening: : Patient negative for fever greater than or equal to 101.5 degrees Fahrenheit, and additional compatible Ebola Virus Disease symptoms Patient denies exposure to infectious person Patient denies travel to an Ebola-affected area in the 21 days before illness onset No symptoms or risks identified at this time. Screenin:20 Abuse screen: Denies threats or abuse. Nutritional screening: No deficits noted. em Tuberculosis screening: No symptoms or risk factors identified. Fall Risk None identified. Assessment: 18:20 General: Appears in no apparent distress. uncomfortable, Behavior is calm, cooperative. em Pain: Complains of pain in right femoral area Pain currently is 10 out of 10 on a pain scale. Neuro: Level of Consciousness is awake, alert, obeys commands, Oriented to person, place, time, situation. Cardiovascular: Capillary refill < 3 seconds Patient's skin is warm and dry. Respiratory: Airway is patent Respiratory effort is even, unlabored, Respiratory pattern is regular, symmetrical. GI: Abdomen is flat, Bowel sounds present X 4 quads. Abd is soft and non tender X 4 quads. Reports nausea, vomiting, Patient currently denies diarrhea. : Denies burning with urination, discharge. EENT: No signs and/or symptoms were reported regarding the EENT system. Derm: Skin is intact, Skin is pink, warm \T\ dry. Musculoskeletal: Range of motion: intact in all extremities. 18:30 General: The previous assessment is accurate, call light remains within reach. . ss 18:45 Reassessment: Patient appears in no apparent distress at this time. pt request pain em medication, provider notified, new medication orders received. 19:15 General: Appears in no apparent distress. comfortable, Behavior is calm, cooperative. rr5 Pain: Complains of pain in RLQ area Pain radiates to right flank,back, groin, pelvis Pain currently is 5 out of 10 on a pain scale. Quality of pain is described as aching. 19:15 Neuro: Level of Consciousness is awake, alert, obeys commands, Oriented to person, rr5 place, time, situation. Cardiovascular: Capillary refill < 3 seconds Patient's skin is warm and dry. Respiratory: Airway is patent Respiratory effort is even, unlabored, Respiratory pattern is regular, symmetrical. GI: Abdomen is flat, Bowel sounds present X 4 quads. Reports lower abdominal pain. : Denies burning with urination, discharge. EENT: No signs and/or symptoms were reported regarding the EENT system. Derm: Skin is intact, Skin is pink, warm \T\ dry. normal. Musculoskeletal: Capillary refill < 3 seconds, Range of motion: intact in all extremities. 20:35 Reassessment: patient is discharge, pain still having pain yasir LAI informed with rr5 order mad e and carried out. patient refused after explaining that he will stay for couple of minutes after the medication is administer, he opted to go now and does not want to stay. explained the discharged instruction. Vital Signs: 17:30 BP 130 / 71; Pulse 71; Resp 18; Temp 98.2; Pulse Ox 96% on R/A; Weight 84.82 kg; Height ph 5 ft. 10 in. (177.80 cm); Pain 10/10; 18:20 BP 135 / 78; Pulse 61; Resp 18; Pulse Ox 99% on R/A; Pain 10/10; em 19:27 BP 146 / 100; Pulse 88; Resp 18; Temp 98; Pulse Ox 96% ; rr5 20:02 BP 120 / 75; Pulse 74; Resp 18; Pulse Ox 99% on R/A; mt 20:35 BP 118 / 70; Pulse 59; Resp 16; Pulse Ox 99% on R/A; rr5 17:30 Body Mass Index 26.83 (84.82 kg, 177.80 cm) ED Course: 16:33 Patient arrived in ED. sb2 16:33 Klaus Lema DO is Private Physician. sb2 17:29 Triage completed. ph 17:31 Arm band placed on. ph 18:03 Corazon Menjivar FNP-C is [facility]. kb 18:03 Bird Seay MD is Attending Physician. kb 18:05 Fransisco Owen LVN is Primary Nurse. em 18:[address] vm2 18:20 Patient has correct armband on for positive identification. Bed in low position. Call em light in reach. 18:29 CT completed. Patient tolerated procedure well. Patient moved back from CT. vm2 18:30 Initial lab(s) drawn, by me, sent to lab. Inserted saline lock: 20 gauge in right em forearm, using aseptic technique. 20:45 No provider procedures requiring assistance completed. IV discontinued, intact, rr5 bleeding controlled, No redness/swelling at site. Pressure dressing applied. Administered Medications: 18:50 Drug: morphine 4 mg Route: IVP; Site: right forearm; ss 20:15 Follow up: Response: Pain is decreased rr5 18:50 Drug: Zofran 4 mg Route: IVP; Site: right forearm; ss 20:30 Follow up: Response: No adverse reaction rr5 20:43 Not Given (Patient Refused; does not want to stay he wants to go.): TORadol 30 mg IVP rr5 once Outcome: 20:31 Discharge ordered by . kb 20:45 Discharged to home ambulatory. rr5 20:45 Condition: stable 20:45 Discharge instructions given to patient, Instructed on discharge instructions, follow up and referral plans. Demonstrated understanding of instructions, follow-up care. 20:53 Patient left the ED. rr5 Signatures: Corazon Menjivar FNP-C FNP-Ckb Munoz, Fransisco, CITIZENSHIP TEACHER CITIZENSHIP TEACHER Cuca Castanon, RN RN ss Julianna Hammond RN RN Colleen Lancaster [facility] Génesis Armstrong mt, Sheri 2 Stanton Barajas RN RN rr5
--- NOTE | 2018-08-03 20:33 | EDPHYS ---
Physician Documentation [facility] Name: Anthony Griffin Age: 62 yrs Sex: Male : 1955 Arrival Date: 08/03/2018 Time: 16:33 Bed 18 Private MD: Klaus Lema ED Physician Bird Seay HPI: 08/03 18:42 This 62 yrs old Male presents to ER via Ambulatory with complaints of Flank kb Pain. 18:42 The patient complains of pain in the right flank. The pain radiates to the groin. kb Onset: The symptoms/episode began/occurred 1 week(s) ago. Modifying factors: The symptoms are alleviated by nothing. the symptoms are aggravated by movement, palpation/percussion. Associated signs and symptoms: Pertinent positives: fever, Pertinent negatives: diarrhea, dizziness, dysuria, urinary frequency, headache, hematuria, nausea, pain radiating to the lower extremities, vomiting. Severity of pain: At its worst the pain was moderate in the emergency department the pain is unchanged. The patient has not experienced similar symptoms in the past. The patient has been recently seen by a physician: the patient's primary care provider, earlier today, with similar presenting complaints, and was sent to the [facility] Emergency Department for further evaluation. Historical: - Allergies: 17:30 No Known Allergies; ph - PMHx: 17:30 CVA; Dementia; Hyperlipidemia; Hypertension; ph - Immunization history:: Adult Immunizations up to date. - Social history:: Smoking status: Patient/guardian denies using tobacco. - Ebola Screening: : Patient negative for fever greater than or equal to 101.5 degrees Fahrenheit, and additional compatible Ebola Virus Disease symptoms Patient denies exposure to infectious person Patient denies travel to an Ebola-affected area in the 21 days before illness onset No symptoms or risks identified at this time. ROS: 19:37 Constitutional: Negative for fever, chills, and weight loss, Cardiovascular: Negative kb for chest pain, palpitations, and edema, Respiratory: Negative for shortness of breath, cough, wheezing, and pleuritic chest pain, Back: Negative for injury and pain, MS/Extremity: Negative for injury and deformity, Skin: Negative for injury, rash, and discoloration, Neuro: Negative for headache, weakness, numbness, tingling, and seizure. 19:37 Abdomen/GI: Positive for abdominal pain, Negative for nausea, vomiting, and diarrhea. 19:37 : Positive for flank pain, groin pain. Exam: 19:37 Constitutional: This is a well developed, well nourished patient who is awake, alert, kb and in no acute distress. Head/Face: Normocephalic, atraumatic. ENT: Nares patent. No nasal discharge, no septal abnormalities noted. Tympanic membranes are normal and external auditory canals are clear. Oropharynx with no redness, swelling, or masses, exudates, or evidence of obstruction, uvula midline. Mucous membranes moist. Neck: Trachea midline, no thyromegaly or masses palpated, and no cervical lymphadenopathy. Supple, full range of motion without nuchal rigidity, or vertebral point tenderness. No Meningismus. Chest/axilla: Normal chest wall appearance and motion. Nontender with no deformity. No lesions are appreciated. Cardiovascular: Regular rate and rhythm with a normal S1 and S2. No gallops, murmurs, or rubs. Normal PMI, no JVD. No pulse deficits. Respiratory: Lungs have equal breath sounds bilaterally, clear to auscultation and percussion. No rales, rhonchi or wheezes noted. No increased work of breathing, no retractions or nasal flaring. Back: No spinal tenderness. No costovertebral tenderness. Full range of motion. Skin: Warm, dry with normal turgor. Normal color with no rashes, no lesions, and no evidence of cellulitis. MS/ Extremity: Pulses equal, no cyanosis. Neurovascular intact. Full, normal range of motion. Neuro: Awake and alert, GCS 15, oriented to person, place, time, and situation. Cranial nerves II-XII grossly intact. Motor strength 5/5 in all extremities. Sensory grossly intact. Cerebellar exam normal. Normal gait. 19:37 Abdomen/GI: Inspection: abdomen appears normal, Bowel sounds: normal, in all quadrants, Palpation: soft, in all quadrants, mild abdominal tenderness, in the right lower quadrant. Vital Signs: 17:30 BP 130 / 71; Pulse 71; Resp 18; Temp 98.2; Pulse Ox 96% on R/A; Weight 84.82 kg; Height ph 5 ft. 10 in. (177.80 cm); Pain 10/10; 18:20 BP 135 / 78; Pulse 61; Resp 18; Pulse Ox 99% on R/A; Pain 10/10; em 19:27 BP 146 / 100; Pulse 88; Resp 18; Temp 98; Pulse Ox 96% ; rr5 20:02 BP 120 / 75; Pulse 74; Resp 18; Pulse Ox 99% on R/A; mt 20:35 BP 118 / 70; Pulse 59; Resp 16; Pulse Ox 99% on R/A; rr5 17:30 Body Mass Index 26.83 (84.82 kg, 177.80 cm) ph MDM: 18:03 Patient medically screened. kb 19:44 Data reviewed: vital signs, nurses notes. Data interpreted: Pulse oximetry: on room air kb is 96 %. Interpretation: normal. 20:31 Counseling: I had a detailed discussion with the patient and/or guardian regarding: the kb historical points, exam findings, and any diagnostic results supporting the discharge/admit diagnosis, lab results, radiology results, the need for outpatient follow up, a family practitioner, to return to the emergency department if symptoms worsen or persist or if there are any questions or concerns that arise at home. 08/03 18:09 Order name: Basic Metabolic Panel kb 08/03 18:09 Order name: CBC with Diff kb 08/03 18:09 Order name: CT Stone Protocol kb 08/03 18:49 Order name: CBC with Automated Diff; Complete Time: 18:50 EDMS 08/03 19:20 Order name: Basic Metabolic Panel; Complete Time: 19:35 EDMS 08/03 19:55 Order name: Urine Dipstick--Ancillary (enter results) mw2 08/03 18:03 Order name: Urine Dipstick-Ancillary (obtain specimen); Complete Time: 19:58 kb 08/03 18:09 Order name: IV Saline Lock; Complete Time: 18:46 kb 08/03 18:09 Order name: Labs collected and sent; Complete Time: 18:46 kb 08/03 18:53 Order name: CT; Complete Time: 18:53 EDMS Administered Medications: 18:50 Drug: morphine 4 mg Route: IVP; Site: right forearm; ss 20:15 Follow up: Response: Pain is decreased rr5 18:50 Drug: Zofran 4 mg Route: IVP; Site: right forearm; ss 20:30 Follow up: Response: No adverse reaction rr5 20:43 Not Given (Patient Refused; does not want to stay he wants to go.): TORadol 30 mg IVP rr5 once Disposition: 08/03/18 20:31 Discharged to Home. Impression: Lower abdominal pain, unspecified. - Condition is Stable. - Discharge Instructions: Abdominal Pain, Adult, [id number]. - Medication Reconciliation Form, Thank You Letter, Antibiotic Education, Prescription Opioid Use form. - Follow up: Emergency Department; When: As needed; Reason: Worsening of condition. Follow up: Private Physician; When: 2 - 3 days; Reason: Recheck today's complaints, Continuance of care, Re-evaluation by your physician. Addendum: 08/05/2018 09:19 Co-signature as Attending Physician, Bird Seay MD I agree with the assessment and k dr plan of care. Signatures: Dispatcher [employer] EDMS Corazon Menjivar, BACK ORDER CLERK-C BACK ORDER CLERK-CkBird Welsh MD MD [facility] Fransisco Owen, PALM AND BACK FORGER PALM AND BACK FORGER em Cuca Capone RN RN Julianna Hammond RN RN Stanton Barajas, RN RN rr5 Corrections: (The following items were deleted from the chart) 08/03 20:53 20:31 08/03/2018 20:31 Discharged to Home. Impression: Lower abdominal pain, rr5 unspecified. Condition is Stable. Forms are Medication Reconciliation Form, Thank You Letter, Antibiotic Education, Prescription Opioid Use. Follow up: Emergency Department; When: As needed; Reason: Worsening of condition. Follow up: Private Physician; When: 2 - 3 days; Reason: Recheck today's complaints, Continuance of care, Re-evaluation by your physician. kb
[2018-08-03] MEDS ORDERED: KETOROLAC 30 MG/ML INJ ONE (20:45)
[2018-08-03 21:51] VITALS: TEMP 98
[2018-08-03 21:52] VITALS: O2SAT 99
[2018-08-03 21:54] VITALS: BP 118/70
[2018-08-03 22:28] LABS: Urine Blood NEGATIVE (NEG); Urine Glucose NEGATIVE (NEG); Urine Protein NEGATIVE (NEG); Urine Specific Gravity 1.025 (1.005-1.030)
== END 2018-08-03 20:53 | disposition home or self-care (01) ==
LOC: ER 16:17
DX: R10.31 Right lower quadrant pain (principal); I10 Essential (primary) hypertension; Z86.73 Personal history of transient ischemic attack (TIA), and cerebral infarction without residual deficits
CPT/HCPCS: 36415; 74176; 76377; 80048; 81003; 85025; 96374; 96375; 99284; J2405

== ENCOUNTER 2019-11-13 09:34 | Emergency (ER) | payer OTHER ==
--- OUTSIDE RECORDS SUMMARY | 2019-11-13 09:36 | XMS REPORT ---
:1955 [facility] Address [address] [place] [address] [address] [place] [address] Care Team Providers Name Role Phone Unavailable Unavailable Unavailable Problems This patient has no known problems. Allergies, Adverse Reactions, Alerts This patient has no known allergies or adverse reactions. Medications This patient has no known medications.
--- NOTE | 2019-11-13 11:29 | RAD REPORT ---
EXAM DESCRIPTION: CT - Head Brain Wo Cont - 11/13/2019 11:17 am CLINICAL HISTORY: Headache COMPARISON: None TECHNIQUE: Computed axial tomography of the head was obtained. IV contrast was not requested. All CT scans are performed using dose optimization technique as appropriate and may include automated exposure control or mA/KV adjustment according to patient size. FINDINGS: An intracranial bleed is not seen . The ventricles are normal in caliber. No extra-axial fluid collection is noted. Mild to moderate low-density areas within periventricular, deep and subcortical white matter likely r epresent ischemic changes secondary to small vessel disease. Fluid within the sinuses/ mastoids is not seen. IMPRESSION: No acute intracranial abnormality is seen. If patient's symptoms persist MRI of the bra in would be recommended.
--- NOTE | 2019-11-13 11:37 | RAD REPORT ---
EXAM DESCRIPTION: RAD - Chest Single View - 11/13/2019 11:28 am CLINICAL HISTORY: CONGESTION Chest pain. COMPARISON: Chest Pa And Lat (2 Views) dated 06/02/2018; Abdomen 1 View (KUB) dated 01/18/2016 FINDINGS: Portable technique limits examination quality. The lungs are grossly clear. The heart is normal in size. No displaced fractures. IMPRESSION: No acute intrathoracic process suspected.
[2019-11-13] MEDS ORDERED: IPRATROPIUM BROM 0.5MG/2.5ML ONE (11:51)
[2019-11-13] MEDS ORDERED: ALBUTEROL 2.5 MG/3 ML NEB SOL ONE (11:51)
[2019-11-13] MEDS ORDERED: KETOROLAC 30 MG/ML INJ ONE (11:52)
[2019-11-13] MEDS ORDERED: NA CHLORIDE 0.9% 500 ML ONE (11:52)
[2019-11-13 13:08] LABS: Potassium 4.2 mmol/L (3.5-5.1)
[2019-11-13 13:24] LABS: Absolute Lymphocytes (CBC) 11.6 K/uL (0.7-4.9); Basophils % 0.4 % (0-1.3); Hematocrit 43.4 % (39.6-49.0); Lymphocytes % 69.5 % (15.3-44.8); MPV 7.4 fL (7.6-11.3); RBC Red Blood Cell Count 4.72 M/uL (4.33-5.43)
[2019-11-13 14:15] LABS: Blood Morphology Comment NOT SEEN (NOT SEEN); Platelet Estimate ADEQ
--- NOTE | 2019-11-13 14:33 | EDPHYS ---
Physician Documentation [facility] Name: Anthony Griffin Age: 64 yrs Sex: Male : 1955 Arrival Date: 11/13/2019 Time: 09:37 Bed 18 Private MD: Kenia Euceda ED Physician Bird Seay HPI: 11/12 14:35 This 64 yrs old Male presents to ER via Ambulatory with complaints of kdr Headache, Sinus Congestion. 14:35 The patient has had general upper respiratory s/s for more than a week and then in the kdr last few days, he has rodriguez increased fascial congestion. Feels like his sinuses are congested.. 15:07 Onset: The symptoms/episode began/occurred gradually, 1 week(s) ago, and became worse 3 kdr day(s) ago, and became persistent 3 days ago. Severity of symptoms: At their worst the symptoms were mild in the emergency department the symptoms are unchanged. The patient has not experienced similar symptoms in the past. The patient has not recently seen a physician. Historical: - Allergies: 14:03 No Known Allergies; vc - Home Meds: 13:46 amlodipine 5 mg tab 1 tab once daily [Active]; aspirin 81 mg Oral TbEC 1 tab once daily vc [Active]; clopidogrel 75 mg Oral tab 1 tab once daily [Active]; donepezil 10 mg Oral TbDL 1 tab once daily [Active]; memantine 10 mg Oral tab daily [Active]; pravastatin 80 mg Oral tab 1 tab once daily [Active]; ramipril 10 mg Oral cap 1 cap once daily [Active]; sertraline 50 mg Oral tab 1 tab once daily [Active]; - PMHx: 13:46 CVA; Dementia; Hyperlipidemia; Hypertension; Pre-diabetic; vc - PSHx: 13:46 Carotid surgery; Hernia repair; femoral artery repair; vc - Immunization history:: Adult Immunizations up to date. - Social history:: Smoking status: Patient/guardian denies using tobacco, the patient reports quitting approximately 15 years ago. ROS: 15:07 Constitutional: Negative for fever, chills, and weight loss, Eyes: Negative for injury, kdr pain, redness, and discharge, Neck: Negative for injury, pain, and swelling, Cardiovascular: Negative for chest pain, palpitations, and edema, Respiratory: Negative for shortness of breath, cough, wheezing, and pleuritic chest pain, Abdomen/GI: Negative for abdominal pain, nausea, vomiting, diarrhea, and constipation, Back: Negative for injury and pain, MS/Extremity: Negative for injury and deformity, Skin: Negative for injury, rash, and discoloration, Neuro: Negative for headache, weakness, numbness, tingling, and seizure activity. Psych: Negative for depression, anxiety, suicide ideation, homicidal ideation, and hallucinations, Allergy/Immunology: Negative for hives, rash, and allergies, Endocrine: Negative for neck swelling, polydipsia, polyuria, polyphagia, and marked weight changes, Hematologic/Lymphatic: Negative for swollen nodes, abnormal bleeding, and unusual bruising. Exam: 15:07 Constitutional: This is a well developed, well nourished patient who is awake, alert, kdr and in no acute distress. Head/Face: Normocephalic, atraumatic. Eyes: Pupils equal round and reactive to light, extra-ocular motions intact. Lids and lashes normal. Conjunctiva and sclera are non-icteric and not injected. Cornea within normal limits. Periorbital areas with no swelling, redness, or edema. ENT: Nares patent. No nasal discharge, no septal abnormalities noted. Tympanic membranes are normal and external auditory canals are clear. Oropharynx with no redness, swelling, or masses, exudates, or evidence of obstruction, uvula midline. Mucous membranes moist. Neck: Trachea midline, no thyromegaly or masses palpated, and no cervical lymphadenopathy. Supple, full range of motion without nuchal rigidity, or vertebral point tenderness. No Meningismus. Chest/axilla: Normal chest wall appearance and motion. Nontender with no deformity. No lesions are appreciated. Cardiovascular: Regular rate and rhythm with a normal S1 and S2. No gallops, murmurs, or rubs. Normal PMI, no JVD. No pulse deficits. Abdomen/GI: Soft, non-tender, with normal bowel sounds. No distension or tympany. No guarding or rebound. No evidence of tenderness throughout. Back: No spinal tenderness. No costovertebral tenderness. Full range of motion. Male : Normal genitalia with no discharge or lesions. Skin: Warm, dry with normal turgor. Normal color with no rashes, no lesions, and no evidence of cellulitis. MS/ Extremity: Pulses equal, no cyanosis. Neurovascular intact. Full, normal range of motion. Neuro: Awake and alert, GCS 15, oriented to person, place, time, and situation. Cranial nerves II-XII grossly intact. Motor strength 5/5 in all extremities. Sensory grossly intact. Cerebellar exam normal. Normal gait. Psych: Awake, alert, with orientation to person, place and time. Behavior, mood, and affect are within normal limits. 15:07 Respiratory: the patient does not display signs of respiratory distress, Respirations: normal, Breath sounds: wheezing: expiratory that is mild, is heard diffusely. Vital Signs: 10:04 BP 97 / 60; Pulse 80; Resp 18; Pulse Ox 97% ; Pain 10/10; ms 12:36 BP 116 / 60; Pulse 79; Resp 18; Pulse Ox 98% on R/A; vc 13:00 BP 122 / 61; Pulse 73; Resp 16; Pulse Ox 97% on R/A; vc MDM: 14:32 Patient medically screened. kdr 15:07 Data reviewed: vital signs, nurses notes, lab test result(s), radiologic studies. kdr Counseling: I had a detailed discussion with the patient and/or guardian regarding: the historical points, exam findings, and any diagnostic results supporting the discharge/admit diagnosis, the presence of at least one elevated blood pressure reading (>120/80) during this emergency department visit, lab results, radiology results, the need for further work-up and treatment in the hospital. 11/12 09:47 Order name: Flu dm5 11/12 10:14 Order name: Influenza Screen (A ; Complete Time: 10:48 EDNV 11/12 10:34 Order name: Influenza Screen (A [facility] 11/12 11:07 Order name: CBC with Diff [facility] 11/12 11:09 Order name: Chem 7; Complete Time: 13:26 [facility] 11/12 14:16 Order name: Manual Differential [facility] 11/12 11:07 Order name: CT Head Brain wo Cont [facility] 11/12 11:09 Order name: CXR XRAY [facility] 11/12 11:59 Order name: Labs collected and sent: recollect green and lavender top; Complete Time: bd 12:39 11/12 13:24 Order name: CT; Complete Time: 13:26 EDNV 11/12 13:24 Order name: RAD; Complete Time: 13:26 [facility] 11/12 13:01 Order name: Labs - recollect needed; Complete Time: 14:07 ms Administered Medications: 11:54 Drug: Albuterol - atroVENT (3:1) (2.5 mg - 0.5 mg) 3 ml Route: Nebulizer; vc 13:29 Follow up: Response: No adverse reaction vc 11:55 Drug: TORadol - Ketorolac 15 mg Route: IVP; Site: left antecubital; vc 13:29 Follow up: Response: No adverse reaction; Pain is decreased vc 11:55 Drug: NS 0.9% 500 ml Route: IV; Rate: bolus; Site: right antecubital; vc 13:00 Follow up: IV Status: Completed infusion; IV Intake: 500ml vc Disposition: 11/13/19 14:32 Discharged to Home. Impression: COPD Exacerbation, Upper Respiratory Infection, Bronchitis. - Condition is Stable. - Discharge Instructions: Chronic Obstructive Pulmonary Disease Exacerbation, Acute Bronchitis, [id number]. - Prescriptions for Prednisone 20 mg Oral Tablet - take 1 tablet by ORAL route once daily for 5 days; 5 tablet. Zithromax Z- Sebastián 250 mg Oral Tablet - take 1 tablet by ORAL route as directed for 5 days Day 1 - take two (2) tablets one time. Day 2, 3, 4 , 5 take one (1) tablet once daily.; 6 tablet. Albuterol Sulfate 90 mcg/actuation - inhale 1-2 puff by INHALATION route every 4-6 hours; 1 Inhaler. - Medication Reconciliation Form, Thank You Letter, Antibiotic Education form. - Follow up: Kenia Euceda MD; When: 2 - 3 days; Reason: If symptoms return, Further diagnostic work-up, Recheck today's complaints, Continuance of care, Re-evaluation by your physician. - Problem is an acute exacerbation. - Symptoms have improved. Signatures: Dispatcher [employer] [facility] Ara Neff Kevin, MD MD kdr Villarreal, Maria ms Calcote, Vanessa, RN RN vc Corrections: (The following items were deleted from the chart) 14:52 14:32 11/13/2019 14:32 Discharged to Home. Impression: COPD Exacerbation, Upper vc Respiratory Infection, Bronchitis. Condition is Stable. Forms are Medication Reconciliation Form, Thank You Letter, Antibiotic Education, Prescription Opioid Use. Follow up: Kenia Euceda; When: 2 - 3 days; Reason: If symptoms return, Further diagnostic work-up, Recheck today's complaints, Continuance of care, Re-evaluation by your physician. Problem is an acute exacerbation. Symptoms have improved. kdr
--- NOTE | 2019-11-13 14:33 | ER ---
Nurse's Notes [facility] Name: Anthony Griffin Age: 64 yrs Sex: Male : 1955 Arrival Date: 11/13/2019 Time: 09:37 Bed 18 Private MD: Kenia Euceda Diagnosis: COPD Exacerbation, Upper Respiratory Infection, Bronchitis Presentation: 11/12 09:44 Chief complaint: Patient states: head and sinus congestions for 3 days, cough and dm5 mucus. Coronavirus screen: The patient has NOT traveled to a country currently being monitored by the [facility] within the last 14 days. The patient has NOT had contact with any known and/or suspected case of coronavirus. Proceed with normal triage procedures. Ebola Screen: Patient negative for fever greater than or equal to 101.5 degrees Fahrenheit, and additional compatible Ebola Virus Disease symptoms Patient denies exposure to infectious person. Patient denies travel to an Ebola-affected area in the 21 days before illness onset. No symptoms or risks identified at this time. Risk Assessment: Do you want to hurt yourself or someone else? Patient reports no desire to harm self or others. 09:44 Method Of Arrival: Ambulatory dm5 09:44 Acuity: MENDY 4 dm5 11:40 Initial Sepsis Screen: Does the patient meet any 2 criteria? No. Patient's initial vc sepsis screen is negative. Does the patient have a suspected source of infection? No. Patient's initial sepsis screen is negative. 13:47 Onset of symptoms was November 10, 2019. Triage Assessment: 11:40 Headache History: The patient has had previous headaches and this one is different than previous episodes. General: Appears in no apparent distress. uncomfortable, Behavior is calm, cooperative, appropriate for age. Pain: Complains of pain in right eye and right hindu Pain currently is 5 out of 10 on a pain scale. Pain began gradually. Pain: Also complains of no other associated symptoms. Neuro: Level of Consciousness is awake, alert, obeys commands. Historical: - Allergies: 14:03 No Known Allergies; vc - Home Meds: 13:46 amlodipine 5 mg tab 1 tab once daily [Active]; aspirin 81 mg Oral TbEC 1 tab once daily vc [Active]; clopidogrel 75 mg Oral tab 1 tab once daily [Active]; donepezil 10 mg Oral TbDL 1 tab once daily [Active]; memantine 10 mg Oral tab daily [Active]; pravastatin 80 mg Oral tab 1 tab once daily [Active]; ramipril 10 mg Oral cap 1 cap once daily [Active]; sertraline 50 mg Oral tab 1 tab once daily [Active]; - PMHx: 13:46 CVA; Dementia; Hyperlipidemia; Hypertension; Pre-diabetic; vc - PSHx: 13:46 Carotid surgery; Hernia repair; femoral artery repair; vc - Immunization history:: Adult Immunizations up to date. - Social history:: Smoking status: Patient/guardian denies using tobacco, the patient reports quitting approximately 15 years ago. Screenin:40 Abuse screen: Denies threats or abuse. Nutritional screening: No deficits noted. vc Tuberculosis screening: No symptoms or risk factors identified. 11:40 Fall Risk None identified. vc Assessment: 12:00 General: Appears in no apparent distress. ill, Behavior is calm, cooperative, vc appropriate for age. Pain: Complains of pain in right hindu and right eye. Neuro: Level of Consciousness is awake, alert, obeys commands, Oriented to person, place, time, situation, Appropriate for age. Cardiovascular: Capillary refill < 3 seconds Patient's skin is warm and dry. Respiratory: Reports shortness of breath on exertion Airway is patent Respiratory effort is even, unlabored, Respiratory pattern is regular, symmetrical. GI: No deficits noted. : No signs and/or symptoms were reported regarding the genitourinary system. EENT: No signs and/or symptoms were reported regarding the EENT system. Reports. Derm: Skin temperature is warm. Musculoskeletal: Circulation, motion, and sensation intact. Range of motion: intact in all extremities. 13:00 Reassessment: Patient and/or family updated on plan of care and expected duration. Pain vc level reassessed. Patient is alert, oriented x 3, equal unlabored respirations, skin warm/dry/pink. 14:00 Reassessment: Patient and/or family updated on plan of care and expected duration. Pain vc level reassessed. Patient is alert, oriented x 3, equal unlabored respirations, skin warm/dry/pink. Patient states symptoms have improved. Vital Signs: 10:04 BP 97 / 60; Pulse 80; Resp 18; Pulse Ox 97% ; Pain 10/10; ms 12:36 BP 116 / 60; Pulse 79; Resp 18; Pulse Ox 98% on R/A; vc 13:00 BP 122 / 61; Pulse 73; Resp 16; Pulse Ox 97% on R/A; vc ED Course: 09:37 Patient arrived in ED. ag5 09:37 Kenia Euceda MD is Private Physician. ag5 09:44 Mery Middleton, RN is Primary Nurse. dm5 09:45 Triage completed. dm5 09:51 Labs ordered per protocol. Drawn by ED staff. dm5 09:52 Bird Seay MD is Attending Physician. kdr 10:27 Flu Sent. dm5 11:40 Arm band placed on. vc 11:45 Patient has correct armband on for positive identification. Bed in low position. Call vc light in reach. Pulse ox on. NIBP on. 11:45 Inserted saline lock: 20 gauge in left antecubital area, using aseptic technique. vc 13:31 Primary Nurse role handed off by Mery Middleton, JEREMIAH vc 13:31 Antonieta Gore RN is Primary Nurse. vc 14:31 Kenia Euceda MD is Referral Physician. kdr 14:50 No provider procedures requiring assistance completed. Assist provider with bone marrow vc aspiration. IV discontinued, intact, bleeding controlled, No redness/swelling at site. Pressure dressing applied. Administered Medications: 11:54 Drug: Albuterol - atroVENT (3:1) (2.5 mg - 0.5 mg) 3 ml Route: Nebulizer; vc 13:29 Follow up: Response: No adverse reaction vc 11:55 Drug: TORadol - Ketorolac 15 mg Route: IVP; Site: left antecubital; vc 13:29 Follow up: Response: No adverse reaction; Pain is decreased vc 11:55 Drug: NS 0.9% 500 ml Route: IV; Rate: bolus; Site: right antecubital; vc 13:00 Follow up: IV Status: Completed infusion; IV Intake: 500ml vc Intake: 13:00 IV: 500ml; Total: 500ml. vc Outcome: 14:32 Discharge ordered by . kdr 14:50 Discharged to home ambulatory. vc 14:50 Condition: good 14:50 Discharge instructions given to patient, Instructed on discharge instructions, follow up and referral plans. medication usage, Demonstrated understanding of instructions, follow-up care, medications, Prescriptions given X 3. 14:52 Patient left the ED. vc Signatures: Mery Middleton RN RN dm5 Bird Seay MD MD kdr Villarreal, Maria ms Gaskin, Ajare ag5 Antonieta Gore RN RN vc
[2019-11-13 15:03] VITALS: BP 122/61; O2SAT 97
== END 2019-11-13 14:52 | disposition home or self-care (01) ==
LOC: ER 09:34
DX: J44.1 Chronic obstructive pulmonary disease with (acute) exacerbation (principal); J06.9 Acute upper respiratory infection, unspecified; J40 Bronchitis, not specified as acute or chronic; E78.5 Hyperlipidemia, unspecified; I10 Essential (primary) hypertension; Z86.73 Personal history of transient ischemic attack (TIA), and cerebral infarction without residual deficits
CPT/HCPCS: 96361; 85025; 80048; 36415; 87804 ×2; 70450; 71045; 94640; 96374; 99285; J7040

== ENCOUNTER 2020-02-12 15:01 | Emergency (ER) | payer OTHER ==
--- OUTSIDE RECORDS SUMMARY | 2020-02-12 15:34 | XMS REPORT | Summary of Care ---
:1955 Author Organization [facility] Address [address] [place] [address] Care Team Providers Name Role Phone Kinsey Shirley Primary Care Provider Reason for Visit Reason Comments Assessment Encounter Details Date Type Department Care Team Description 11/28/2019 Nurse Triage [facility] Pcp, Patient Does Not Assessment [address] [facility] [place] [address] [phone] [place] [address] [place], [place] [address] Allergies No Known Allergiesdocumented as of this encounter (statuses as of 11/28/2019) Medications Medication Sig Dispensed Refills Start Date End Date Status clopidogrel (PLAVIX) 75 Take 75 mg by 0 Active mg tablet mouth daily. AMLODIPINE BESYLATE Take 5 mg by 0 Active (NORVASC ORAL) mouth daily. ASPIRIN (ASPIR-81 ORAL) Take 81 mg by 0 Active mouth daily. OMEPRAZOLE ORAL Take 20 mg by 0 Active mouth daily. TOPIRAMATE (TOPAMAX Take 25 mg by 0 Active ORAL) mouth 2 (two) times daily. DONEPEZIL HCL (ARICEPT Take 10 mg by 0 Active ORAL) mouth 2 (two) times daily. MEMANTINE HCL (NAMENDA Take 28 mg by 0 Active ORAL) mouth daily. MELATONIN ORAL Take by mouth. 0 Active RAMIPRIL ORAL Take 10 mg by 0 Ac tive mouth daily. PRAVASTATIN SODIUM Take 80 mg by 0 Active (PRAVACHOL ORAL) mouth daily. predniSONE (DELTASONE) Take 20 mg by 0 Active 20 mg tablet mouth daily. albuterol (PROAIR) 90 Inhale 1 Puff 2 0 Active mcg/actuation inhaler (two) times daily. vitamin C with viki Take 1,000 mg by 0 Active hips 1,000 mg tablet mouth daily. VITAMIN B COMPLEX ORAL Take 1 Tab by 0 Active mouth daily. VITAMIN E, Take 100 Units by 0 A [address]ive DL,TOCOPHERYL ACET, mouth daily. (DL-VITAMIN E ACETATE) 100 unit capsule MULTIVITAMIN ORAL Take 1 Tab by 0 Active mouth daily. traMADOL (ULTRAM) 50 mg Take 1 Tab by mouth every 6 (six) hours as needed for Pain (scale 4-6). Jordan Viveros PA-C / Vic Mott MD 20 Tab 0 11/08/2015 Active tablet GUANAKO# [id number] DPS# [id number] [place] Lic.# [id number] NPI# [id number] cyclobenzaprine Take 1 Tab by 30 Tab 0 11/08/2015 Active (FLEXERIL) 5 mg tablet mouth 3 (three) times daily. acetaminophen-codeine Take 1 tablet by 14 tablet 0 09/18/2018 Active 300-30 mg mouth every 4 tabletIndications: (four) hours as Scrotal pain needed for Pain (scale 7-10). naproxen 250 mg Take 1 tablet by 20 tablet 0 01/27/2019 Active tabletIndications: mouth 2 (two) Acute pain of right times daily with knee meals. traMADOL (ULTRAM) 50 mg Take 1 tablet by 9 tablet 0 9 Active tabletIndications: mouth every 8 Acute pain of right (eight) hours as knee needed for Pain (scale 4-6). cyclobenzaprine 5 mg Take 1 tablet by 9 tablet 0 01/27/2019 Active tabletIndications: mouth 3 (three) Acute pain of right times daily. knee gabapentin 300 mg Take 300 mg by 0 Active capsule mouth daily. QUEtiapine 25 mg tablet Take 25 mg by 0 Active mouth daily. documented as of this encounter (statuses as of 11/28/2019) Active Problems No known active problemsdocumented as of this encounter (statuses as of 11/28/2019) Social History Tobacco Use Types Packs/Day Years Used Date Former Smoker Cigarettes 30 Smokeless Tobacco: Never Used Alcohol Use Drinks/Week oz/Week Comments Yes 0 Standard drinks or equivalent 0.0 Occasional Drinker Sex Assigned at Date Recorded Not on file Job Start Date Occupation Industry Not on file Not on file Not on file Travel History Travel Start Travel End No recent travel history available. documented as of this encounter Last Filed Vital Signs Not on filedocumented in this encounter Plan of Treatment Health Maintenance Due Date Last Done Comments HEPATITIS C (HCV) SCREEN 1955 DTaP,Tdap,and Td Vaccines (1 - 1968 Tdap) Zoster Recombinant Vaccine 2007 (SHINGRIX) (1 of 2) LUNG CANCER SCREEN: Recommended 2012 for age 55-80 with 30 + pack year history INFLUENZA VACCINE (#1) 2019 COLONOSCOPY 08/21/2029 08/21/2019 PNEUMOCOCCAL 0-64 YEARS COMBINED Aged Out No longer eligible based on SERIES patient's age to complete this topic documented as of this encounter Results Not on filedocumented in this encounter Insurance Payer Benefit Plan / Subscriber ID Effective Phone Address T ype Group Dates [facility] MEDICARE [id number] 2018-Aaron stoner Adv HEALTHCARE COMPLETE nt PPO MEDICARE CHOICE ADVANTAGE documented as of this encounter
--- OUTSIDE RECORDS SUMMARY | 2020-02-12 15:34 | XMS REPORT | Continuity of Care Document ---
:1955 Author Organization [facility] t Address [address] [place] [address] Care Team Providers Name Role Phone Radha Lema DO Primary Care Physician Pcp, Does Not Have A Attending Clinician Problems Condition Condition Condition Status Onset Resolution Last Treating Co mments Source Name Details Category Date Date Treatment Clinician Date Chest pain Chest pain Disease Active 2017-09 [place] 2-14 [facility] 00:00: st 00 Essential Essential Disease Active 2017-09 Star t[place] hypertensi hypertensi 2-14 Me thodi on on 00:00: st 00 Mixed Mixed Disease Active 2017-09 [place] hyperlipid hyperlipid 2-14 Me thodi emia emia 00:00: st 00 Allergies, Adverse Reactions, Alerts This patient has no known allergies or adverse reactions. Social History Social Habit Start Date Stop Date Quantity Comments Source Sex Assigned At [facility] History of tobacco 2006-04-18 Current smoker [place] [facility] use 00:00:00 Smoking Status Start Date Stop Date Source Former smoker 2018-05-14 00:00:00 2018-05-14 00:00:00 [place] [facility] Medications Ordered Filled Start Stop Current Ordering Indication Dosage Frequency Signature Comments Components Source Medication Medication Date Date Medication? Clinician (SIG) Name Name albuterol 2017-09 Yes 1{puff} Inhale 1 H can (PROAIR 2-16 puff. [facility] HFA,PROVENT 12:32: st [place] 36 HFA,VENTOLI N HFA) 90 mcg/actuati on inhaler aspirin 81 2017-09 Yes 81mg Chew 81 [place] mg chewable 2-16 mg. [facility] tablet 12:32: st 36 clopidogrel 2017-09 Yes 75mg Take 75 mg [place] (PLAVIX) 75 2-16 by mouth. Met hodi mg tablet 12:32: st 36 amLODIPine 2017-09 Yes 5mg QD Take 5 mg [place] (NORVASC) 5 2-16 by mouth Meth marcia mg tablet 12:32: daily. st 36 traMADol 2017-09 Yes 50mg Q6H Take 50 mg Star [place] (ULTRAM) 50 2-16 by mouth Meth marcia mg tablet 12:32: every 6 st 36 (six) hours as needed for moderate pain. sertraline 2017-09 Yes 50mg QD Take 50 mg [place] (ZOLOFT) 50 2-16 by mouth Meth marcia MG tablet 12:32: daily. st 36 pravastatin 2017-09 Yes 80mg QD Take 80 mg [place] (PRAVACHOL) 2-16 by mouth Meth marcia 40 MG 12:32: daily. st tablet 36 omeprazole 2017-09 Yes 20mg QD Take 20 mg [place] (PriLOSEC) 2-16 by mouth Metho di 20 MG 12:32: daily. st capsule 36 ascorbic 2017-09 Yes 1000mg Q.5D Take 1,000 [place] acid, 2-16 mg by [facility] vitamin C, 12:32: mouth 2 st (VITAMIN C) 36 (two) 500 MG times a tablet day. ramipril 2017-09 Yes 10mg QD Take 10 mg Star [place] (ALTACE) 10 2-16 by mouth Meth marcia MG capsule 12:32: daily. st 36 donepezil 2017-09 Yes 10mg QD Take 10 mg [place] (ARICEPT) 2-16 by mouth Method i 10 MG 12:32: nightly. st tablet 36 memantine 2017-09 Yes 10mg Q.5D Take 10 mg [place] (NAMENDA) 2-16 by mouth 2 Meth marcia 10 MG 12:32: (two) st tablet 36 times a day. topiramate 2017-09 Yes 25mg Q.5D Take 25 mg [place] (TOPAMAX) 2-16 by mouth 2 Meth marcia 25 MG 12:32: (two) st tablet 36 times a day. cyanocobala 2017-09 Yes 100ug QD Take 100 [place] min 100 MCG 2-16 mcg by Method i tablet 12:32: mouth st 36 daily. HYDROcodone 2017-09 Yes 1{tbl} Take 1 [place] -acetaminop 2-16 tablet by Met noelle carlos (NORCO) 12:32: mouth st 5-325 mg 36 daily. 1 per tablet or 2 tablets daily for pain vitamin E 2017-09 Yes 400U QD Take 400 [place] 400 UNIT 2-16 Units by [facility] capsule 12:32: mouth st 36 daily. lidocaine-p 2017-09 Yes Q12H Apply [place] rilocaine -26 topically Metho di (EMLA) 00:00: every 12 st 2.5-2.5 % 00 (twelve) cream hours as needed for mild pain. Apply to right groin area for pain every 12 hrs as needed Immunizations Ordered Immunization Filled Immunization Date Status Commen ts Source Name Name Pneumococcal 2018-08-18 Completed [place] Polysaccharide 00:00:00 [facility] FLUCELVAX QUAD PF 2018-08-18 Completed [place] 00:00:00 [facility] Procedures This patient has no known procedures. Plan of Care Planned Activity Planned Date Details Comments Source Future Scheduled 2020-04-04 INFLUENZA VACCINE [place] [facility] 00:00:00 [code = INFLUENZA VACCINE] Future Scheduled 2007 COLONOSCOPY SCREENING [place] [facility] Test 00:00:00 [code = COLONOSCOPY SCREENING] Future Scheduled 2007 SHINGLES VACCINES [place] [facility] 00:00:00 (#1) [code = SHINGLES VACCINES (#1)] Encounters Start End Encounter Admission Attending Care Care Encounter Source Date/Time Date/Time Type Type Clinicians Facility Department ID 2019-11-28 2019-11-28 Nurse PcpGWEN [id number] 00:00:00 00:00:00 Triage Patient RENEE [id number] [facility] Not [facility] [id number] Have A [id number] Results This patient has no known results.
--- OUTSIDE RECORDS SUMMARY | 2020-02-12 15:34 | XMS REPORT | Clinical Summary ---
:1955 Author Organization [facility] Address [address] [place] [address] Care Team Providers Name Role Phone Klaus Lema DO Primary Care Provider Allergies No Known Allergies Medications Medication Sig Dispensed Refills Start Date End Date Status albuterol (PROAIR Inhale 1 puff. 0 Active HFA,PROVENTIL HFA,VENTOLIN HFA) 90 mcg/actuation inhaler aspirin 81 mg chewable Chew 81 mg. 0 Active tablet clopidogrel (PLAVIX) 75 Take 75 mg by 0 Active mg tablet mouth. amLODIPine (NORVASC) 5 Take 5 mg by 0 Active mg tablet mouth daily. traMADol (ULTRAM) 50 mg Take 50 mg by 0 Active tablet mouth every 6 (six) hours as needed for moderate pain. sertraline (ZOLOFT) 50 Take 50 mg by 0 Active MG tablet mouth daily. pravastatin (PRAVACHOL) Take 80 mg by 0 Active 40 MG tablet mouth daily. lidocaine-prilocaine Apply topically 30 g 0 07/30/2018 Active (EMLA) 2.5-2.5 % cream every 12 (twelve) hours as needed for mild pain. Apply to right groin area for pain every 12 hrs as needed omeprazole (PriLOSEC) Take 20 mg by 0 Active 20 MG capsule mouth daily. ascorbic acid, vitamin Take 1,000 mg by 0 Active C, (VITAMIN C) 500 MG mouth 2 (two) tablet times a day. ramipril (ALTACE) 10 MG Take 10 mg by 0 Active capsule mouth daily. donepezil (ARICEPT) 10 Take 10 mg by 0 Active MG tablet mouth nightly. memantine (NAMENDA) 10 Take 10 mg by 0 Active MG tablet mouth 2 (two) times a day. topiramate (TOPAMAX) 25 Take 25 mg by 0 Active MG tablet mouth 2 (two) times a day. cyanocobalamin 100 MCG Take 100 mcg by 0 Active tablet mouth daily. HYDROcodone-acetaminoph Take 1 tablet by 0 Active en (NORCO) 5-325 mg per mouth daily. 1 or tablet 2 tablets daily for pain vitamin E 400 UNIT Take 400 Units by 0 Active capsule mouth daily. Active Problems Problem Noted Date Chest pain 08/17/2018 Essential hypertension 08/17/2018 Mixed hyperlipidemia 08/17/2018 Immunizations Name Administration Dates Next Due FLUCELVAX QUAD PF 08/18/2018 Pneumococcal Polysaccharide 08/18/2018 Social History Tobacco Use Types Packs/Day Years Used Date Former Smoker Quit: 04/18/20 06 Smokeless Tobacco: Never Used Sex Assigned at Date Recorded Not on file Job Start Date Occupation Industry Not on file Not on file Not on file Travel History Travel Start Travel End No recent travel history available. 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
[2020-02-12 15:48] LABS: Absolute Lymphocytes (CBC) 6.3 K/uL (0.7-4.9); Basophils % 0.6 % (0-1.3); Hematocrit 45.4 % (39.6-49.0); Lymphocytes % 56.6 % (15.3-44.8); MPV 7.9 fL (7.6-11.3); RBC Red Blood Cell Count 4.88 M/uL (4.33-5.43)
[2020-02-12 16:06] LABS: ALT/SGPT 57 U/L (12-78); AST/SGOT 57 U/L (15-37); Alkaline Phosphatase 56 U/L (45-117); BUN Blood Urea Nitrogen 19 mg/dL (7-18); Bicarbonate 24 mmol/L (21-32); Bilirubin Direct < 0.1 mg/dL (0-0.2); Bilirubin Total 0.3 mg/dL (0.2-1.0); Glucose Level 124 mg/dL (74-106); Lipase 55 U/L (73-393); Potassium 4.3 mmol/L (3.5-5.1); Protein, Total 8.1 g/dL (6.4-8.2); Sodium Level 140 mmol/L (136-145)
[2020-02-12 16:40] LABS: Blood Morphology Comment NOT SEEN (NOT SEEN); Platelet Estimate ADEQ; Urine White Blood Cell Casts OK
--- NOTE | 2020-02-12 17:14 | RAD REPORT ---
EXAM DESCRIPTION: CTAbdomen Pelvis W Contrast - 02/12/2020 4:41 pm CLINICAL HISTORY: Abdominal pain. ABD PAIN COMPARISON: No comparisons TECHNIQUE: Biphasic CT imaging of the abdomen and pelvis was performed with 100 ml non-ionic IV cont rast. All CT scans are performed using dose optimization technique as appropriate and may include automated exposure control or mA/KV adjustment according to patient size. FINDINGS: Emphysematous changes are present in both lung bases. Mild diffuse fatty liver. No focal mass or biliary dilatation. The spleen, adrenal glands, right kidn ey are normal. Punctate calculus in the superior calyx left kidney without hydronephrosis. Mild pancr eatic atrophy. No bowel obstruction, free air, free fluid or abscess. Sigmoid diverticulosis. Appendectomy. Postsurg ical changes are present right inguinal region. No evidence of significant lymphadenopathy. Moderate lumbosacral degenerative change. IMPRESSION: No acute intra-abdominal or pelvic finding. Postsurgical changes right groin. Mild fatty liver. Sigmoid diverticulosis.
--- NOTE | 2020-02-12 17:44 | ER ---
Nurse's Notes [facility] Name: Anthony Griffin Age: 64 yrs Sex: Male : 1955 Arrival Date: 02/12/2020 Time: 15:07 Bed 19 Private MD: Kenia Euceda Diagnosis: Unspecified abdominal pain Presentation: 02/11 15:10 Chief complaint: Patient states: i was at another [facility] office a psychiatrist and it tw2 started hurting in my right groin area and i havent been having any diarrhea or vomiting or anything. Coronavirus screen: Patient denies a cough. Patient denies shortness of breath or difficulty breathing. Patient denies measured and/or subjective temperature greater than 100.4F prior to today's visit. Patient denies travel on a cruise ship or to a country the [facility] currently lists as an affected area. Patient denies contact with known and/or suspected case of COVID-19. Ebola Screen: Patient denies travel to an Ebola-affected area in the 21 days before illness onset. Initial Sepsis Screen: Does the patient meet any 2 criteria? No. Patient's initial sepsis screen is negative. Does the patient have a suspected source of infection? No. Patient's initial sepsis screen is negative. Risk Assessment: Do you want to hurt yourself or someone else? Patient reports no desire to harm self or others. Onset of symptoms was February 12, 2020. 15:10 Method Of Arrival: Ambulatory tw2 15:10 Acuity: MENDY 3 tw2 Triage Assessment: 15:11 General: Appears in no apparent distress. uncomfortable, Behavior is calm, cooperative, tw2 appropriate for age. Pain: Complains of pain in right femoral area, suprapubic area and right inguinal area. GI: Reports lower abdominal pain, upper abdominal pain. Historical: - Allergies: 15:13 No Known Allergies; tw2 - Home Meds: 15:13 amlodipine 5 mg tab 1 tab once daily [Active]; aspirin 81 mg Oral TbEC 1 tab once daily tw2 [Active]; donepezil 10 mg Oral TbDL 1 tab once daily [Active]; clopidogrel 75 mg Oral tab 1 tab once daily [Active]; 15:13 ramipril 10 mg Oral cap 1 cap once daily [Active]; sertraline 50 mg Oral tab 1 tab once tw2 daily [Active]; pravastatin 80 mg Oral tab 1 tab once daily [Active]; memantine 10 mg Oral tab daily [Active]; - PMHx: 15:13 CVA; Dementia; Hyperlipidemia; Hypertension; pre-diabetic; tw2 - PSHx: 15:13 femoral artery repair; Hernia repair; Carotid surgery; Appendectomy; tw2 - Immunization history:: Adult Immunizations. - Social history:: Smoking status: . Screenin:44 Abuse screen: Denies threats or abuse. Nutritional screening: No deficits noted. tw2 Tuberculosis screening: No symptoms or risk factors identified. Fall Risk None identified. Assessment: 17:00 General: Appears in no apparent distress. comfortable, Behavior is calm, cooperative. iw Pain: Complains of pain in right lower quadrant and right inguinal area and right femoral area. Neuro: Level of Consciousness is awake, alert, obeys commands, Oriented to person, place, time, situation, Moves all extremities. Full function. Cardiovascular: Patient's skin is warm and dry. GI: Abdomen is non-distended, Bowel sounds present X 4 quads. Abd is soft and non tender X 4 quads. : Reports pain in right in suprapubic area. Derm: Skin is intact, is healthy with good turgor. Musculoskeletal: Range of motion: intact in all extremities. Vital Signs: 15:10 BP 149 / 76; Pulse 84; Resp 18; Temp 98.0(TE); Pulse Ox 96% on R/A; Weight 92.53 kg tw2 (R); Height 5 ft. 10 in. (177.80 cm); Pain 6/10; 17:00 BP 134 / 75; Pulse 84; Resp 16; Pulse Ox 98% on R/A; iw 15:10 Body Mass Index 29.27 (92.53 kg, 177.80 cm) tw2 ED Course: 15:07 Patient arrived in ED. mr 15:07 Kenia Euceda MD is Private Physician. mr 15:10 [facility] j[facility] 15:10 Jb Wilhelm MD is Attending Physician. jmm 15:11 Triage completed. tw2 15:12 Arm band placed on. tw2 15:13 Placed in gown. Bed in low position. tw2 15:38 Initial lab(s) drawn, by me, sent to lab. Inserted saline lock: 20 gauge in right jp3 antecubital area, using aseptic technique. Blood collected. Patient maintains SpO2 saturation greater than 95% on room air. 15:39 Evelyn Montano, RN is Primary Nurse. iw 16:41 CT Abd/Pelvis - IV Contrast Only In Process Unspecified. EDMS 17:00 No provider procedures requiring assistance completed. IV discontinued, intact, iw bleeding controlled, No redness/swelling at site. Pressure dressing applied. 17:43 Bradford Ivan MD is Referral Physician. janet Administered Medications: 17:45 Drug: morphine 2 mg Route: IVP; Site: right antecubital; iw 18:00 Follow up: Response: No adverse reaction iw 17:45 Drug: Zofran (Ondansetron) 4 mg Route: IVP; Site: right antecubital; iw 18:00 Follow up: Response: No adverse reaction iw Outcome: 17:00 Discharged to home ambulatory. iw 17:00 Condition: good 17:00 Discharge instructions given to patient, Instructed on discharge instructions, follow up and referral plans. Demonstrated understanding of instructions, follow-up care, medications, Prescriptions given X 1. 17:43 Discharge ordered by . janet 18:07 Patient left the ED. iw Signatures: Dispatcher [employer] EDMS Jamir Millard PA PA jmm Rivera, Mary mr Evelyn Montano, RN RN iw Sara Dowell RN RN tw2 Ming Tse jp3
--- NOTE | 2020-02-12 17:45 | EDPHYS ---
Physician Documentation [facility] Name: Anthony Griffin Age: 64 yrs Sex: Male : 1955 Arrival Date: 02/12/2020 Time: 15:07 Bed 19 Private MD: Kenia Euceda ED Physician Jb Wilhelm HPI: 02/11 15:22 This 64 yrs old Male presents to ER via Ambulatory with complaints of jmm Abdominal Pain. 15:22 The patient presents with abdominal pain in the lower abdomen. Onset: The jmm symptoms/episode began/occurred acutely, just prior to arrival. 15:37 The symptoms do not radiate. Associated signs and symptoms: Pertinent negatives: nausea jmm and vomiting, diarrhea. The symptoms are described as achy, sharp. Modifying factors: The symptoms are alleviated by prone position, remaining still, the symptoms are aggravated by movement, pressure. This is a 64 year old male with a history of dementia, hlp, htn that presents to the ED with complaints of right inguinal pain beginning earlier today. Patient is 15 years s/p inguinal hernia repair. Denies fever, vomiting, diarrhea. . Historical: - Allergies: 15:13 No Known Allergies; tw2 - Home Meds: 15:13 amlodipine 5 mg tab 1 tab once daily [Active]; aspirin 81 mg Oral TbEC 1 tab once daily tw2 [Active]; donepezil 10 mg Oral TbDL 1 tab once daily [Active]; clopidogrel 75 mg Oral tab 1 tab once daily [Active]; 15:13 ramipril 10 mg Oral cap 1 cap once daily [Active]; sertraline 50 mg Oral tab 1 tab once tw2 daily [Active]; pravastatin 80 mg Oral tab 1 tab once daily [Active]; memantine 10 mg Oral tab daily [Active]; - PMHx: 15:13 CVA; Dementia; Hyperlipidemia; Hypertension; pre-diabetic; tw2 - PSHx: 15:13 femoral artery repair; Hernia repair; Carotid surgery; Appendectomy; tw2 - Immunization history:: Adult Immunizations. - Social history:: Smoking status: . ROS: 15:37 Constitutional: Negative for fever, chills, and weight loss, Cardiovascular: Negative jmm for chest pain, palpitations, and edema, Respiratory: Negative for shortness of breath, cough, wheezing, and pleuritic chest pain. 15:37 Abdomen/GI: Positive for abdominal pain. 15:37 All other systems are negative. Exam: 15:37 Constitutional: This is a well developed, well nourished patient who is awake, alert, jmm and in no acute distress. Head/Face: atraumatic. Eyes: EOMI, no conjunctival erythema appreciated ENT: Moist Mucus Membranes Neck: Trachea midline, Supple Chest/axilla: Normal chest wall appearance and motion. Cardiovascular: Regular rate and rhythm. No edema appreciated Respiratory: Normal respirations, no respiratory distress appreciated Abdomen/GI: Non distended, soft Back: Normal ROM 15:37 Skin: General appearance color normal MS/ Extremity: Moves all extremities, no obvious deformities appreciated, no edema noted to the lower extremities Neuro: Awake and alert, normal gait Psych: Behavior is normal, Mood is normal, Patient is cooperative and pleasant 15:37 Abdomen/GI: Inspection: abdomen appears normal, Bowel sounds: normal, Palpation: soft, mild abdominal tenderness, in the suprapubic area and right lower quadrant. Vital Signs: 15:10 BP 149 / 76; Pulse 84; Resp 18; Temp 98.0(TE); Pulse Ox 96% on R/A; Weight 92.53 kg tw2 (R); Height 5 ft. 10 in. (177.80 cm); Pain 6/10; 17:00 BP 134 / 75; Pulse 84; Resp 16; Pulse Ox 98% on R/A; iw 15:10 Body Mass Index 29.27 (92.53 kg, 177.80 cm) tw2 MDM: 15:16 Patient medically screened. [facility] 17:42 Data reviewed: vital signs, nurses notes. Counseling: I had a detailed discussion with vanessa the patient and/or guardian regarding: the historical points, exam findings, and any diagnostic results supporting the discharge/admit diagnosis, radiology results, the need for outpatient follow up, to return to the emergency department if symptoms worsen or persist or if there are any questions or concerns that arise at home. ED course: Patient is alert and non toxic in appearance in the ED. CT imaging negative for an acute process. Patient is advised to follow up with gen surgery for for reevaluation. Patient is otherwise given strict return precautions. Patient understood and agrees with the plan of care. . 02/11 15:22 Order name: Basic Metabolic Panel; Complete Time: 16:07 [facility] 02/11 15:22 Order name: CBC with Diff; Complete Time: 16:44 [facility] 02/11 15:22 Order name: Hepatic Function; Complete Time: 16:07 [facility] 02/11 15:22 Order name: Lipase; Complete Time: 16:07 [facility] 02/11 15:22 Order name: CT Abd/Pelvis - IV Contrast Only [facility] 02/11 16:41 Order name: CBC Smear Scan; Complete Time: 16:44 [facility] 02/11 15:22 Order name: IV Saline Lock; Complete Time: 15:41 [facility] 02/11 15:22 Order name: Labs collected and sent; Complete Time: 15:41 [facility] Administered Medications: 17:45 Drug: morphine 2 mg Route: IVP; Site: right antecubital; iw 18:00 Follow up: Response: No adverse reaction 17:45 Drug: Zofran (Ondansetron) 4 mg Route: IVP; Site: right antecubital; iw 18:00 Follow up: Response: No adverse reaction iw Disposition: 02/12/20 17:43 Discharged to Home. Impression: Unspecified abdominal pain. - Condition is Stable. - Discharge Instructions: Abdominal Pain, Adult. - Prescriptions for orphenadrine citrate 100 mg Oral Tablet Sustained Release - take 1 tablet by ORAL route 2 times per day As needed; 20 tablet. - Medication Reconciliation Form, Thank You Letter, Antibiotic Education, Prescription Opioid Use form. - Follow up: Bradford Ivan MD; When: 2 - 3 days; Reason: Recheck today's complaints, Continuance of care, Re-evaluation by your physician. Addendum: 02/13/2020 18:41 Co-signature as Attending Physician, Jb Wilhelm MD I agree with the assessment and c rodriguez plan of care. Signatures: Dispatcher [employer] Jb Cantor MD MD cha Mickail, Joel, PA PA jmm Williams, Irene, JEREMIAH RN iw Sara Dowell RN RN tw2 Corrections: (The following items were deleted from the chart) 02/11 18:07 17:43 02/12/2020 17:43 Discharged to Home. Impression: Unspecified abdominal pain. iw Condition is Stable. Forms are Medication Reconciliation Form, Thank You Letter, Antibiotic Education, Prescription Opioid Use. Follow up: Bradford Ivan; When: 2 - 3 days; Reason: Recheck today's complaints, Continuance of care, Re-evaluation by your physician. janet
[2020-02-12] MEDS ORDERED: MORPHINE 2 MG/ML SYR ONE (17:47)
[2020-02-12] MEDS ORDERED: ONDANSETRON 4 MG/2 ML VIAL ONE (17:47)
[2020-02-12 18:14] VITALS: TEMP 98
[2020-02-12 18:16] VITALS: BP 134/75; O2SAT 98
== END 2020-02-12 18:07 | disposition home or self-care (01) ==
LOC: ER 15:01
DX: R10.9 Unspecified abdominal pain (principal); I10 Essential (primary) hypertension; E78.5 Hyperlipidemia, unspecified; Z86.73 Personal history of transient ischemic attack (TIA), and cerebral infarction without residual deficits
CPT/HCPCS: 85025; 80048; 36415; 80076; 83690; 74177; 96375; 96374; 99284; Q9967; J2270; J2405

== ENCOUNTER 2020-03-04 09:00 | Day surgery (SDC) | payer OTHER ==
[2020-03-03 17:26] LABS: Basophils % 0.6 % (0-1.3); Hematocrit 49.8 % (39.6-49.0); Lymphocytes % 59.9 % (15.3-44.8); MPV 7.7 fL (7.6-11.3); RBC Red Blood Cell Count 5.38 M/uL (4.33-5.43)
[2020-03-03 17:31] LABS: Potassium 5.1 mmol/L (3.5-5.1)
[2020-03-04] MEDS ORDERED: CEFAZOLIN/SWI 1gm 1 GM/10 ML SYR ONE (09:20)
[2020-03-04] MEDS ORDERED: NA CHLORIDE 0.9% 1,000 ML ONE (09:20)
[2020-03-04 10:05] LABS: Protime INR 0.97
[2020-03-04] MEDS ORDERED: LIDOCAINE 2% MPF 5 ML VIAL ONE (10:25)
[2020-03-04] MEDS ORDERED: FENTANYL CITR 100 MCG/2 ML ONE (10:25)
[2020-03-04] MEDS ORDERED: MIDAZOLAM HCL 2 MG/2 ML INJ ONE (10:25)
[2020-03-04] MEDS ORDERED: propofoL 200 MG/20 ML VIAL IV ONE (10:25)
[2020-03-04] MEDS ORDERED: Phenylephrine HCl 10 MG/ML 1 ML VIAL ONE (10:44)
[2020-03-04] MEDS ORDERED: EPHEDRINE SULF 50 MG/ML VIAL ONE (10:44)
[2020-03-04] MEDS ORDERED: NS 0.9% VIAL 20 ML ONE (10:45)
--- NOTE | 2020-03-04 11:02 | P.BOP ---
Preoperative diagnosis: recurrrent tender right inguinal hernia Postoperative diagnosis: same Primary procedure: Open repair of recurrrent tender right inguinal hernia with mesh Personal Care Aide: RAMY BENJAMIN (TRAFFIC INSPECTOR) Estimated blood loss: <10cc Specimen: none Anesthesia: General Complications: None Implants: medium mesh plug Transferred to: Recovery Room Condition: Good
[2020-03-04] MEDS ORDERED: ONDANSETRON 4 MG/2 ML VIAL ONE ×2 (11:10→11:53)
[2020-03-04] MEDS ORDERED: Ringers Lactate 1,000 ML IV ONE (11:16)
[2020-03-04] MEDS: HYDROMORPHONE HCL 1 MG/ML INJ ONE ×2 (11:35→11:40)
--- OUTSIDE RECORDS SUMMARY | 2020-03-04 12:11 | XMS REPORT | Clinical Summary ---
:1955 Author Organization [facility] Address [address] [place] [address] Care Team Providers Name Role Phone Klaus [...] VACCINE 04/04/2020 08/18/2018 Implants Implanted Type Area Machine Stoppage Frequency Checker Device Identifier Shelf Exp iration Model / Date Serial / L ot Dental Implant Description:dental implant on top teeth Results Not on fileafter 03/04/2019 Advance Directives For more information, please contact: [phone] Type Date Recorded Patient Planning Management It Specialist Explanati on Advance Directives, Living Will and Medical Power of Diagnostic Radiologist Code Status Date Activated Date Inactivated Comments Full Code 08/17/2018 3:45 AM 08/19/2018 4:32 PM Code Status decision reached by: Patient
--- OUTSIDE RECORDS SUMMARY | 2020-03-04 12:11 | XMS REPORT | Continuity of Care Document ---
:1955 Author Organization [facility] t Address [address] [place] [address] Care Team Providers Name Role Phone Radha Lema DO Primary Care Physician Pcp, Does Not Have A Attending Clinician Problems Condition Condition Condition Status Onset Resolution Last Treating Co mments Source Name Details Category Date Date Treatment Clinician Date Chest pain Chest pain Disease Active 2017-09 [place] 2-14 Methodi 00:00: st 00 Essential Essential Disease Active 2017-09 [place] hypertensi hypertensi 2-14 Me thodi on on 00:00: st 00 Mixed Mixed Disease Active 2017-09 [place] hyperlipid hyperlipid 2-14 Me thodi emia emia 00:00: st 00 Allergies, Adverse Reactions, Alerts This patient has no known allergies or adverse reactions. Social History Social Habit Start Date Stop Date Quantity Comments Source Sex Assigned At [facility] ethodist History of tobacco 2006-04-18 Current smoker [place] use 00:00:00 Smoking Status Start Date Stop Date Source Former smoker 2018-05-14 00:00:00 2018-05-14 00:00:00 [place] Medications Ordered Filled Start Stop Current Ordering [...] 2017-09 Yes Q12H Apply [place] on rilocaine 26 topically Metho di (EMLA) 00:00: every 12 st 2.5-2.5 % 00 (twelve) cream hours as needed for mild pain. Apply to right groin area for pain every 12 hrs as needed Immunizations Ordered Immunization Filled Immunization Date Status Commen Source Name Name Pneumococcal 2018-08-18 Completed [place] Polysaccharide 00:00:00 [place] FLUCELVAX QUAD PF 2018-08-18 Completed [place] 00:00:00 [place] Procedures This patient has no known procedures. Plan of Care Planned Activity Planned Date Details Comments Source Future Scheduled 2020-04-04 INFLUENZA VACCINE [place] [facility] Test 00:00:00 [code = INFLUENZA VACCINE] Future Scheduled 2007 COLONOSCOPY SCREENING Alan mackey [facility] Test 00:00:00 [code = COLONOSCOPY SCREENING] Future Scheduled 2007 SHINGLES VACCINES [place] Test 00:00:00 (#1) [code = SHINGLES VACCINES (#1)] Encounters Start End Encounter Admission Attending Care Care Encounter Source Date/Time Date/Time Type Type Clinicians Facility Department ID 2019-11-28 2019-11-28 Nurse PcpGWEN [id number] 00:00:00 00:00:00 Triage Patient RENEE [id number] Does Not HOSPITAL [id number] Have A [id number] Results This patient has no known results.
[2020-03-04] MEDS ORDERED: CODEINE 30MG/APAP 300MG TAB ONE (12:26)
[2020-03-04 14:03] VITALS: BP 104/70; TEMP 98; O2SAT 96
--- NOTE | 2020-03-04 22:37 | OP ---
Date of Procedure: 03/04/2020 Surgeon: Bradford Ivan MD Nike Athlete: FATOUMATA Clayton. Preoperative Diagnosis: Recurrent right inguinal tender hernia. Postoperative Diagnosis: Recurrent right inguinal tender hernia. Procedure: Open repair of tender recurrent right inguinal hernia with mesh. Estimated Blood Loss: Less than 10 mL. Implants: Medium mesh plug. Indications: This is the case of a male who comes to us with a recurrent hernia in the right side. Patient had extensive surgical intervention, midline incision, right femoral artery incision from pre vious vascular surgeries. The benefits, alternatives, and risks of repair of a recurrent inguinal he rnia fully explained to the patient which include, but not limited to infection, bleeding, damage to adjacent structures, anesthesia complications, chronic numbness, chronic pain, recurrence, AZ, and de ath. He also understands this may not relieve his symptoms. He might need more than 1 surgical inte rvention. He signed a consent. Description Of Procedure: Patient was brought to the operating room, placed in supine position. Ane sthesia was done without complication. Abdominal area was prepped and draped in sterile fashion. Ma rcaine 0.5% was injected for local anesthetic followed by sharp incision of the skin in the right ing uinal region. Incision was carried down to Heaven fascia until we find external oblique aponeurosis. We find some scar tissue in that area, so we went very slow since patient has extensive surgical hi story. External oblique aponeurosis was opened in direction of its fibers. Then, we identified the area after seeing the spermatic cord. There was a previous material placed in that area from previou s surgeries, but we noticed that the hernia is coming from right at the area of the connection of the previous material and also the pubic tubercle. That hernia sac was then carefully identified. We w ere able to imbricate that area there and then placed a mesh plug right in that connection near the p ubic tubercle and secured that in place with VersaTack. No other hernias identified. Since patient has previous material there and we did not feel any at this moment to put the mesh sheet because the mesh plug to care of that hernia. At that moment, I proceeded once again to identify the ilioinguina l nerve and iliohypogastric nerve and they were protected all the time. Now, they were placed back i nto the inguinal canal. The superficial inguinal ring was reconstructed with 2-0 Prolene and externa l oblique aponeurosis was closed making sure the nerves were not included. The area was irrigated. At that moment, I proceeded to close Heaven fascia with 3-0 chromic and skin with rey. Sponge co unt and instrument counts correct. Patient tolerated the procedure well. Patient was sent to recove ry in stable condition. Disposition: Home. Activity: As tolerated. No heavy lifting. Plan: Follow up in my office in 1 week. Call for appointment at [phone]. Keep area dry for 48 carmen rs, then may shower. Cold compress to the right inguinal region for the next 24 hours. He was advis ed to resume his blood thinners tomorrow. FABIO/JV Voice ID: [id number] Report ID: [id number]
== END 2020-03-04 13:15 | disposition home or self-care (01) ==
LOC: OR 09:00
PROVIDERS: ATTEND Surgery
PROC: 0YU50JZ Supplement Right Inguinal Region with Synthetic Substitute, Open Approach (ICD-10-PCS; principal; 2020-03-04 10:00)
DX: K40.91 Unilateral inguinal hernia, without obstruction or gangrene, recurrent (principal); Z11.59 Encounter for screening for other viral diseases; E11.9 Type 2 diabetes mellitus without complications; E78.00 Pure hypercholesterolemia, unspecified; F03.90 Unspecified dementia, unspecified severity, without behavioral disturbance, psychotic disturbance, mood disturbance, and anxiety; J44.9 Chronic obstructive pulmonary disease, unspecified; K21.9 Gastro-esophageal reflux disease without esophagitis; I73.9 Peripheral vascular disease, unspecified; F31.9 Bipolar disorder, unspecified; Z79.02 Long term (current) use of antithrombotics/antiplatelets; Z87.891 Personal history of nicotine dependence; Z86.73 Personal history of transient ischemic attack (TIA), and cerebral infarction without residual deficits
CPT/HCPCS: 85025; 80048; 36415 ×2; 85610; 82947 ×2; 49520; U0002; J2704; J2370; J2250; J3010; J1170; J0690; J7120; J7030; J2405 ×2

== ENCOUNTER 2020-10-16 09:17 | Emergency (ER) | payer OTHER, SELFPAY ==
[2020-10-16 09:44] LABS: Absolute Lymphocytes (CBC) 4.7 K/uL (0.7-4.9); Basophils % 0.6 % (0-1.3); Hematocrit 42.1 % (39.6-49.0); Lymphocytes % 51.2 % (15.3-44.8); MPV 7.8 fL (7.6-11.3); Protime INR 0.96; RBC Red Blood Cell Count 4.59 M/uL (4.33-5.43)
[2020-10-16] MEDS ORDERED: ONDANSETRON 4 MG/2 ML VIAL ONE (09:59)
[2020-10-16] MEDS ORDERED: FENTANYL CITR 100 MCG/2 ML ONE (09:59)
[2020-10-16] MEDS ORDERED: ASPIRIN 81 MG CHEWABLE TABLET ONE (09:59)
[2020-10-16] MEDS ORDERED: NITROGLYCERIN 0.4 MG/TAB SL ONE (10:00)
[2020-10-16 10:04] LABS: ALT/SGPT 35 U/L (12-78); AST/SGOT 20 U/L (15-37); Albumin 3.6 g/dL (3.4-5.0); Alkaline Phosphatase 66 U/L (45-117); BUN Blood Urea Nitrogen 13 mg/dL (7-18); Bicarbonate 21 mmol/L (21-32); Bilirubin Direct < 0.1 mg/dL (0-0.2); Bilirubin Total 0.3 mg/dL (0.2-1.0); Glucose Level 115 mg/dL (74-106); Magnesium 1.7 mg/dL (1.8-2.4); NT PRO-BNP 86 pg/mL (<125); Potassium 3.8 mmol/L (3.5-5.1); Protein, Total 7.5 g/dL (6.4-8.2); Sodium Level 142 mmol/L (136-145); Troponin (Emerg Dept Use Only) < 0.02 ng/mL (0.0-0.045)
[2020-10-16] MEDS ORDERED: KETOROLAC 30 MG/ML INJ ONE (10:06)
--- NOTE | 2020-10-16 10:08 | RAD REPORT ---
EXAM DESCRIPTION: Chaim Single View10/16/2020 9:55 am CLINICAL HISTORY: Chest pain COMPARISON: 2019 FINDINGS: Lungs are hyperaerated. The lungs appear clear of acute infiltrate. The heart is normal size IMPRESSION: No acute abnormalities displayed
[2020-10-16 10:22] LABS: Blood Morphology Comment NOTED (NOT SEEN); Platelet Estimate ADEQ; Stomatocytes 1+
--- NOTE | 2020-10-16 13:25 | ER ---
Nurse's Notes [facility] Name: Anthony Griffin Age: 65 yrs Sex: Male : 1955 Arrival Date: 10/16/2020 Time: 09:18 Bed 17 Private MD: Vivi Levy Diagnosis: Chest pain on breathing;Chest pain, unspecified Presentation: 10/16 09:20 Chief complaint: Patient states: left-sided chest pain that began yesterday and aa5 increased SOB. Pt reports hx of COPD and CVA, pt reports he takes unknown anticoagulant and reports he took ASA 81mg PO this morning. 09:20 Coronavirus screen: shortness of breath. Ebola Screen: Patient negative for fever aa5 greater than or equal to 101.5 degrees Fahrenheit, and additional compatible Ebola Virus Disease symptoms. 09:20 Acuity: MENDY 2 aa5 09:20 Method Of Arrival: Ambulatory aa5 09:20 Onset of symptoms was October 2020. aa5 11:02 Initial Sepsis Screen: Does the patient meet any 2 criteria? No. Patient's initial ph sepsis screen is negative. Does the patient have a suspected source of infection? No. Patient's initial sepsis screen is negative. Risk Assessment: Do you want to hurt yourself or someone else? Patient reports no desire to harm self or others. Historical: - Allergies: 09:37 No Known Allergies; aa5 - PMHx: 09:37 CVA; Dementia; Hyperlipidemia; Hypertension; pre-diabetic; aa5 - PSHx: 09:37 femoral artery repair; Carotid surgery; Hernia repair; Appendectomy; aa5 - Immunization history:: Adult Immunizations unknown. - Social history:: Smoking status: Patient denies any tobacco usage or history of. Screenin:02 Abuse screen: Denies threats or abuse. Denies injuries from another. Nutritional ph screening: No deficits noted. Tuberculosis screening: No symptoms or risk factors identified. Fall Risk None identified. Assessment: 09:45 General: Appears in no apparent distress. Behavior is calm, cooperative, appropriate ph for age, Denies fever, feeling ill. Pain: Complains of pain in left lateral anterior chest. Neuro: Level of Consciousness is awake, alert, obeys commands, Oriented to person, place, time, situation. Cardiovascular: Reports chest pain, shortness of breath, Chest pain is located in left anterior chest wall. Respiratory: Reports shortness of breath at rest pain with movement pain with respiration Airway is patent Respiratory effort is even, unlabored, Respiratory pattern is regular, symmetrical, Denies cough. Derm: Skin is intact, is healthy with good turgor, Skin is pink, warm \T\ dry. Musculoskeletal: Circulation, motion, and sensation intact. Range of motion: intact in all extremities. 11:01 Reassessment: Patient appears in no apparent distress at this time. Patient and/or ph family updated on plan of care and expected duration. Pain level reassessed. Patient is alert, oriented x 3, equal unlabored respirations, skin warm/dry/pink. 12:18 Reassessment: Patient appears in no apparent distress at this time. Patient and/or ph family updated on plan of care and expected duration. Pain level reassessed. Patient is alert, oriented x 3, equal unlabored respirations, skin warm/dry/pink. Repeat cardiac enzymes sent to lab, awaiting results Patient states feeling better. 13:52 Reassessment: Patient appears in no apparent distress at this time. Patient and/or ph family updated on plan of care and expected duration. Pain level reassessed. Patient is alert, oriented x 3, equal unlabored respirations, skin warm/dry/pink. Pt d/c home. Vital Signs: 09:33 BP 121 / 73; Pulse 78; Resp 20; Pulse Ox 96% on R/A; Weight 88.45 kg; Height 5 ft. 10 ph in. (177.80 cm); Pain 10/10; 10:45 BP 111 / 66; Pulse 72; Resp 18; Pulse Ox 96% on R/A; ph 12:19 BP 117 / 75; Pulse 85; Resp 18; Pulse Ox 96% on R/A; ph 13:52 BP 118 / 76; Pulse 78; Resp 18; Temp 97.8; Pulse Ox 95% on R/A; ph 09:33 Body Mass Index 27.98 (88.45 kg, 177.80 cm) ph ED Course: 09:18 Patient arrived in ED. mr 09:19 Vivi Levy MD is Private Physician. mr 09:20 Arm band placed on Patient placed in an exam room, on a stretcher. aa5 09:23 Bird Seay MD is Attending Physician. kdr 09:29 Julianna Hammond, RN is Primary Nurse. ph 09:30 EKG done, by ED staff, reviewed by Bird Seay MD. [facility] 09:30 Initial lab(s) drawn, by ca, sent to lab. Inserted saline lock: 20 gauge in right aa5 forearm, using aseptic technique. Blood collected. 09:36 Triage completed. aa5 09:55 XRAY Chest (1 view) In Process Unspecified. EDMS 11:02 No provider procedures requiring assistance completed. Patient maintains SpO2 ph saturation greater than 95% on room air. 11:03 Patient has correct armband on for positive identification. Placed in gown. Bed in low ph position. Call light in reach. Side rails up X 1. senior cobol developer on. Pulse ox on. NIBP on. Door closed. Noise minimized. 13:24 Vivi Levy MD is Referral Physician. kdr 13:53 IV discontinued, intact, bleeding controlled, No redness/swelling at site. Pressure ph dressing applied. Administered Medications: 09:59 Drug: Aspirin Chewable Tablet 243 mg Route: PO; ph 13:53 Follow up: Response: No adverse reaction ph 09:59 Drug: fentaNYL (PF) 50 mcg Route: IVP; Site: right forearm; ph 10:15 Follow up: Response: No adverse reaction; Pain is decreased; RASS: Alert and Calm (0) ph 10:00 Drug: TORadol - Ketorolac 15 mg Route: IVP; Site: right forearm; ph 10:30 Follow up: Response: No adverse reaction; Pain is decreased ph Outcome: 13:24 Discharge ordered by . kdr 13:52 Discharged to home ambulatory. ph 13:52 Condition: good 13:52 Discharge instructions given to patient, Instructed on discharge instructions, follow up and referral plans. medication usage, Demonstrated understanding of instructions, follow-up care, medications, Prescriptions given X 3. 13:54 Patient left the ED. ph Signatures: Dispatcher [employer] EDDE Bird Seay MD MD [facility] Mark Anthony, Jessi mr Mojica, Mariluz, RN RN [facility] Julianna Hammond, JEREMIAH RN Karen Mcgrath [facility]
--- NOTE | 2020-10-16 13:25 | EDPHYS ---
Physician Documentation [facility] Name: Anthony Griffin Age: 65 yrs Sex: Male : 1955 Arrival Date: 10/16/2020 Time: 09:18 Bed 17 Private MD: Vivi Levy ED Physician Bird Seay HPI: 10/16 10:06 This 65 yrs old Male presents to ER via Ambulatory with complaints of Chest kdr Pain. 10:06 The patient or guardian reports chest pain that is located primarily in the Left kdr lateral chest . Onset: gradually, yesterday, Morning . The pain does not radiate. Associated signs and symptoms: Pertinent positives: shortness of breath. The chest pain is described as aching, sharp. Duration: The patient or guardian reports a single episode, that is still ongoing, waxes and wanes. Modifying factors: The symptoms are alleviated by remaining still, the symptoms are aggravated by activity, breathing, cough, deep breath, movement, twisting torso. Severity of pain: At its worst the pain was moderate severe just prior to arrival, in the emergency department the pain is unchanged. The patient has experienced a previous episode, last year, Was thought to be an infection of some type behind his heart. He does not remember the exact diagnosis. The patient has not recently seen a physician. Historical: - Allergies: 09:37 No Known Allergies; aa5 - PMHx: 09:37 CVA; Dementia; Hyperlipidemia; Hypertension; pre-diabetic; aa5 - PSHx: 09:37 femoral artery repair; Carotid surgery; Hernia repair; Appendectomy; aa5 - Immunization history:: Adult Immunizations unknown. - Social history:: Smoking status: Patient denies any tobacco usage or history of. ROS: 10:06 Constitutional: Negative for fever, chills, and weight loss, Eyes: Negative for injury, kdr pain, redness, and discharge, ENT: Negative for injury, pain, and discharge, Neck: Negative for injury, pain, and swelling, Respiratory: Negative for shortness of breath, cough, wheezing, and pleuritic chest pain, Abdomen/GI: Negative for abdominal pain, nausea, vomiting, diarrhea, and constipation, Back: Negative for injury and pain, : Negative for injury, bleeding, discharge, and swelling, MS/Extremity: Negative for injury and deformity, Skin: Negative for injury, rash, and discoloration, Neuro: Negative for headache, weakness, numbness, tingling, and seizure activity. Psych: Negative for depression, anxiety, suicide ideation, homicidal ideation, and hallucinations, Allergy/Immunology: Negative for hives, rash, and allergies, Endocrine: Negative for neck swelling, polydipsia, polyuria, polyphagia, and marked weight changes. 10:06 Cardiovascular: Positive for chest pain, with cough, with movement, of the left lateral anterior chest, Negative for edema, orthopnea, palpitations, paroxysmal nocturnal dyspnea. Exam: 10:06 Constitutional: This is a well developed, well nourished patient who is awake, alert, kdr and in no acute distress. Head/Face: Normocephalic, atraumatic. Eyes: Pupils equal round and reactive to light, extra-ocular motions intact. Lids and lashes normal. Conjunctiva and sclera are non-icteric and not injected. Cornea within normal limits. Periorbital areas with no swelling, redness, or edema. Neck: Trachea midline, no thyromegaly or masses palpated, and no cervical lymphadenopathy. Supple, full range of motion without nuchal rigidity, or vertebral point tenderness. No Meningismus. Chest/axilla: Normal chest wall appearance and motion. Nontender with no deformity. No lesions are appreciated. Cardiovascular: Regular rate and rhythm with a normal S1 and S2. No gallops, murmurs, or rubs. Normal PMI, no JVD. No pulse deficits. Respiratory: Lungs have equal breath sounds bilaterally, clear to auscultation and percussion. No rales, rhonchi or wheezes noted. No increased work of breathing, no retractions or nasal flaring. Abdomen/GI: Soft, non-tender, with normal bowel sounds. No distension or tympany. No guarding or rebound. No evidence of tenderness throughout. Back: No spinal tenderness. No costovertebral tenderness. Full range of motion. Skin: Warm, dry with normal turgor. Normal color with no rashes, no lesions, and no evidence of cellulitis. MS/ Extremity: Pulses equal, no cyanosis. Neurovascular intact. Full, normal range of motion. Neuro: Awake and alert, GCS 15, oriented to person, place, time, and situation. Cranial nerves II-XII grossly intact. Motor strength 5/5 in all extremities. Sensory grossly intact. Cerebellar exam normal. Normal gait. Psych: Awake, alert, with orientation to person, place and time. Behavior, mood, and affect are within normal limits. 11:57 ECG was reviewed by the Attending Physician. kdr Vital Signs: 09:33 BP 121 / 73; Pulse 78; Resp 20; Pulse Ox 96% on R/A; Weight 88.45 kg; Height 5 ft. 10 ph in. (177.80 cm); Pain 10/10; 10:45 BP 111 / 66; Pulse 72; Resp 18; Pulse Ox 96% on R/A; ph 12:19 BP 117 / 75; Pulse 85; Resp 18; Pulse Ox 96% on R/A; ph 13:52 BP 118 / 76; Pulse 78; Resp 18; Temp 97.8; Pulse Ox 95% on R/A; ph 09:33 Body Mass Index 27.98 (88.45 kg, 177.80 cm) ph MDM: 13:24 Patient medically screened. kdr 13:50 Data reviewed: vital signs, nurses notes, lab test result(s), EKG, radiologic studies. [facility] 10/16 09:26 Order name: Basic Metabolic Panel; Complete Time: 11: [facility] 10/16 09:26 Order name: CBC with Diff; Complete Time: : [facility] 10/16 09:26 Order name: LFT's; Complete Time: 11: [facility] 10/16 09:26 Order name: Magnesium; Complete Time: 11: [facility] 10/16 09:26 Order name: NT PRO-BNP; Complete Time: 11: [facility] 10/16 09:26 Order name: PT-INR; Complete Time: 11: [facility] 10/16 09:26 Order name: Troponin (emerg Dept Use Only); Complete Time: 11: [facility] 10/16 09:26 Order name: XRAY Chest (1 view); Complete Time: 11: [facility] 10/16 09:47 Order name: Manual Differential; Complete Time: 11:21 EDID 10/16 11:33 Order name: Troponin (emerg Dept Use Only): Drawa 2 hours form initial draw [facility] 10/16 11:33 Order name: Troponin (Emerg Dept Use Only); Complete Time: 13:23 EDID 10/16 09:26 Order name: EKG; Complete Time: kdr 10/16 09:26 Order name: Cardiac monitoring; Complete Time: kdr 10/16 09:26 Order name: EKG - Nurse/Tech; Complete Time: kdr 10/16 09:26 Order name: IV Saline Lock; Complete Time: kdr 10/16 09:26 Order name: Labs collected and sent; Complete Time: [facility] 10/16 09:26 Order name: O2 Per Protocol; Complete Time: [facility] 10/16 09: Order name: O2 Sat Monitoring; Complete Time: [facility] EC:57 Rate is 63 beats/min. Rhythm is regular, Sinus Rhythm with No ectopy. QRS [place] is kdr Normal. WI interval is normal. QRS interval is normal. QT interval is normal. Clinical impression: NSR w/ Non-specific ST/T Changes. Administered Medications: 09:59 Drug: Aspirin Chewable Tablet 243 mg Route: PO; ph 13:53 Follow up: Response: No adverse reaction ph 09:59 Drug: fentaNYL (PF) 50 mcg Route: IVP; Site: right forearm; ph 10:15 Follow up: Response: No adverse reaction; Pain is decreased; RASS: Alert and Calm (0) ph 10:00 Drug: TORadol - Ketorolac 15 mg Route: IVP; Site: right forearm; ph 10:30 Follow up: Response: No adverse reaction; Pain is decreased ph Disposition: 10/16/20 13:24 Discharged to Home. Impression: Chest pain on breathing, Chest pain, unspecified. - Condition is Stable. - Discharge Instructions: Chest Wall Pain, [id number]. - Prescriptions for Ibuprofen 800 mg Oral Tablet - take 1 tablet by ORAL route every 8 hours As needed take with food; 30 tablet. Medrol (Sebastián) 4 mg Oral Tablets, Dose Pack - take 1 tablet by ORAL route as directed - follow package instructions; 1 packet. Pepcid 20 mg Oral Tablet - take 1 tablet by ORAL route once daily; 20 tablet. - Medication Reconciliation Form, Thank You Letter, Work release form form. - Follow up: Vivi Levy MD; When: 2 - 3 days; Reason: If symptoms return, Further diagnostic work-up, Recheck today's complaints, Continuance of care, Re-evaluation by your physician. - Problem is new. - Symptoms have improved. Signatures: Dispatcher [employer] EDMS Bird Seay MD MD kdr Mariluz Mojica RN RN aa5 Julianna Hammond RN RN ph Corrections: (The following items were deleted from the chart) 13:54 13:24 10/16/2020 13:24 Discharged to Home. Impression: Chest pain on breathing; Chest ph pain, unspecified. Condition is Stable. Forms are Medication Reconciliation Form, Thank You Letter, Antibiotic Education, Prescription Opioid Use. Follow up: Vivi Levy; When: 2 - 3 days; Reason: If symptoms return, Further diagnostic work-up, Recheck today's complaints, Continuance of care, Re-evaluation by your physician. Problem is new. Symptoms have improved. kdr
[2020-10-16 14:03] VITALS: BP 118/76; TEMP 97.8; O2SAT 95
--- NOTE | 2020-10-18 07:57 | EKG ---
Test Date: 2020-10-16 Test Time: 09:28:42 Barrer And Tacker: ARANZA MEASUREMENT RESULTS: Intervals: Rate: 68 AZ: 150 QRSD: 92 QT: 428 QTc: 455 [place]: P: 47 AZ: 150 QRS: 3 T: 65 INTERPRETIVE STATEMENTS: Normal sinus rhythm Nonspecific ST abnormality Abnormal ECG Compared to ECG 06/02/2018 15:37:50 ST (T wave) deviation now present Sinus arrhythmia no longer present Left ventricular hypertrophy no longer present Electronically Signed On 10-18-20 07:53:32 BOX ATTACHER by Tez Torres
== END 2020-10-16 13:54 | disposition home or self-care (01) ==
LOC: ER 09:17
DX: R07.1 Chest pain on breathing (principal); I10 Essential (primary) hypertension; F03.90 Unspecified dementia, unspecified severity, without behavioral disturbance, psychotic disturbance, mood disturbance, and anxiety
CPT/HCPCS: 93005; 85025; 80048; 36415; 83735; 85610; 80076; 84484 ×2; 83880; 71045; 96375; 96374; 99285; J3010; J2405

== ENCOUNTER 2020-12-02 13:34 | Emergency (ER) | payer OTHER, SELFPAY ==
--- OUTSIDE RECORDS SUMMARY | 2020-12-02 13:53 | XMS REPORT | Continuity of Care Document ---
:[address] [facility] t Address [address] [place] [address] Care Team Providers Name Role Phone Alice NARAYANAN L Attending Clinician Problems This patient has no known problems. Allergies, Adverse Reactions, Alerts This patient has no known allergies or adverse reactions. Medications This patient has no known medications. Procedures This patient has no known procedures. Encounters Start End Encounter Admission Attending Care Care Encounter Source Date/Time Date/Time Type Type Clinicians Facility Department ID 2020-08-31 2020-08-31 Office HINA Jenkins [id number] 15:03:12 16:05:09 Visit [facility] [id number] Surgical [id number] Specialti [id number] [address] Results This patient has no known results.
[2020-12-02 14:20] LABS: Urine Blood Negative (Negative); Urine Glucose Negative (Negative); Urine Protein Negative (Negative); Urine Specific Gravity 1.025 (1.005-1.030); Urine pH 5.5 (5.0-7.0)
--- NOTE | 2020-12-02 15:01 | RAD REPORT ---
EXAM DESCRIPTION: CT - Stone Protocol - 12/02/2020 2:33 pm CLINICAL HISTORY: FLANK PAIN COMPARISON: Abdomen Pelvis W Contrast dated 02/12/2020 TECHNIQUE: Axial 5 mm thick images were obtained without oral or IV contrast. The [id number] span s the entirety of the system including uppermost abdomen and lung bases. All CT scans are performed using dose optimization technique as appropriate and may include automated exposure control or mA/KV adjustment according to patient size. FINDINGS: No hydronephrosis is present and no obstructing ureteral calculi. No suspicious renal mass es. Isodense masses and pyelonephritis are not excluded on a stone protocol CT scan. No significant a drenal finding. No urinary bladder suspicious finding. Prostate gland and seminal vesicles show no garcia spicious findings. Liver and spleen show no acute findings for noncontrast imaging. Fatty infiltration into the pancreat ic parenchyma noted in slightly progressive. No acute pancreatic process. No gallbladder or biliary t ree abnormality identified. No suspicious bowel findings. Moderate stool volume fills the left-side of the colon. No active colon process seen. No hernia, mass or bulky lymphadenopathy noted. No free air, free fluid or inflammatory stranding. P ostsurgical changes present in the right groin. Prominent bony degenerative changes are present. Advanced degenerative change at the L5-S1 disc level with left-sided herniation of disc material. IMPRESSION: No hydronephrosis, obstructing calculus or acute finding. Isodense masses and pyelonephritis are not excluded on stone protocol technique. Severe degenerative change at the L5-S1 disc level with left-sided disc herniation. These changes are not substantially different from February 2020. Central canal detail is inherently limited on CT imaging .
[2020-12-02] MEDS ORDERED: ONDANSETRON 4 MG/2 ML VIAL ONE (16:38)
[2020-12-02] MEDS ORDERED: MORPHINE 4 MG/ML SYR ONE (16:38)
[2020-12-02 16:44] LABS: Absolute Lymphocytes (CBC) 5.8 K/uL (0.7-4.9); Basophils % 0.6 % (0-1.3); Hematocrit 42.7 % (39.6-49.0); Lymphocytes % 52.9 % (15.3-44.8); MPV 7.7 fL (7.6-11.3); RBC Red Blood Cell Count 4.61 M/uL (4.33-5.43)
--- NOTE | 2020-12-02 16:45 | RAD REPORT ---
EXAM DESCRIPTION: US - Scrotum Testicles - 12/02/2020 4:25 pm CLINICAL HISTORY: PAIN Preliminary findings provided to the referring clinician at time of the study. COMPARISON: Stone Protocol dated 12/02/2020 FINDINGS: Testicular tissue is homogeneous with no focal lesion. Doppler evaluation shows normal int ratesticular blood flow. No epididymis enlargement or hyperemia. Left epididymis was not optimally vi sualized. No hydrocele or varicocele identifiable. No scrotal wall thickening or mass. IMPRESSION: Scrotal ultrasound shows no significant or emergent finding.
[2020-12-02 16:57] LABS: ALT/SGPT 40 U/L (12-78); AST/SGOT 24 U/L (15-37); Albumin 3.5 g/dL (3.4-5.0); Alkaline Phosphatase 55 U/L (45-117); BUN Blood Urea Nitrogen 12 mg/dL (7-18); Bicarbonate 27 mmol/L (21-32); Bilirubin Direct < 0.1 mg/dL (0-0.2); Bilirubin Total 0.3 mg/dL (0.2-1.0); Glucose Level 83 mg/dL (74-106); Lipase 47 U/L (73-393); Potassium 4.1 mmol/L (3.5-5.1); Protein, Total 7.6 g/dL (6.4-8.2); Sodium Level 142 mmol/L (136-145)
--- NOTE | 2020-12-02 17:52 | EDPHYS ---
Physician Documentation [facility] Name: Anthony Griffin Age: 65 yrs Sex: Male : 1955 Arrival Date: 12/02/2020 Time: 13:37 Bed 14 Private MD: Jb Santoyo HPI: 12/02 15:34 This 65 yrs old Male presents to ER via Ambulatory with complaints of jr8 Testicular Pain, Low Back Pain. 15:34 Patient presents for bilateral lower back pain, R testicular pain, and abd pain. He jr8 reports it started last Monday. He denies dysuria, hematuria, N/V/D. He reports having had an inguinal hernia repair twice. Last BM today. . Historical: - Allergies: 13:53 No Known Allergies; ca1 - PMHx: 13:53 CVA; Dementia; Hyperlipidemia; Hypertension; pre-diabetic; Diabetes - NIDDM; ca1 - PSHx: 13:53 femoral artery repair; Carotid surgery; Hernia repair; Appendectomy; ca1 - Immunization history:: Pneumococcal vaccine is up to date, . - Social history:: Smoking status: Patient denies any tobacco usage or history of. ROS: 15:37 Cardiovascular: Negative for chest pain, palpitations, and edema, Respiratory: Negative jr8 for shortness of breath, cough, wheezing, and pleuritic chest pain, MS/Extremity: Negative for injury and deformity, Skin: Negative for injury, rash, and discoloration, Neuro: Negative for headache, weakness, numbness, tingling, and seizure. 15:37 Abdomen/GI: Positive for abdominal pain, of the posterior aspect of left lateral abdomen, posterior aspect of right lateral abdomen, right upper quadrant, left upper quadrant, right lower quadrant, left lower quadrant and abdomen diffusely. 15:37 Back: Positive for flank pain, bilaterally. 15:37 : Positive for testicular pain 17:54 All other systems are negative. jr8 Exam: 15:37 Head/Face: Normocephalic, atraumatic. Chest/axilla: Normal chest wall appearance and jr8 motion. Nontender with no deformity. No lesions are appreciated. Cardiovascular: Regular rate and rhythm with a normal S1 and S2. No gallops, murmurs, or rubs. Normal PMI, no JVD. No pulse deficits. Respiratory: Lungs have equal breath sounds bilaterally, clear to auscultation and percussion. No rales, rhonchi or wheezes noted. No increased work of breathing, no retractions or nasal flaring. Skin: Warm, dry with normal turgor. Normal color with no rashes, no lesions, and no evidence of cellulitis. MS/ Extremity: Pulses equal, no cyanosis. Neurovascular intact. Full, normal range of motion. Neuro: Awake and alert, GCS 15, oriented to person, place, time, and situation. Cranial nerves II-XII grossly intact. Motor strength 5/5 in all extremities. Sensory grossly intact. Cerebellar exam normal. Normal gait. 15:37 Abdomen/GI: Inspection: obese scar(s), are noted in the epigastric area, umbilical area and suprapubic area, Bowel sounds: normal, in all quadrants, Palpation: severe abdominal tenderness, in all quadrants, Worse on Right side. 15:37 Back: CVA tenderness, is noted on the right, is noted on the left. 15:37 : Male external genitalia: tenderness, is palpated in the right inguinal area, R testicle . Vital Signs: 13:50 BP 126 / 64; Pulse 72; Resp 16 S; Temp 98.1(TE); Pulse Ox 96% on R/A; Weight 90.26 kg ca1 (R); Height 5 ft. 10 in. (177.80 cm) (R); Pain 9/10; 14:45 BP 133 / 59; Pulse 86; Resp 18; Pulse Ox 95% on R/A; bw 15:45 BP 131 / 60; Pulse 87; Resp 18; Pulse Ox 95% on R/A; bw 16:45 BP 129 / 62; Pulse 84; Resp 18; Pulse Ox 94% on R/A; bw 18:31 BP 133 / 70; Pulse 87; Resp 18; Pulse Ox 91% on R/A; bw 13:50 Body Mass Index 28.55 (90.26 kg, 177.80 cm) ca1 MDM: 15:16 Patient medically screened. jr8 17:50 Data reviewed: vital signs, nurses notes, lab test result(s), radiologic studies, CT jr8 scan, ultrasound. Data interpreted: Pulse oximetry: on room air is 95 %. Interpretation: normal. Counseling: I had a detailed discussion with the patient and/or guardian regarding: the historical points, exam findings, and any diagnostic results supporting the discharge/admit diagnosis, lab results, radiology results, the need for outpatient follow up, a family practitioner, to return to the emergency department if symptoms worsen or persist or if there are any questions or concerns that arise at home. Response to treatment: the patient's symptoms have markedly improved after treatment. Special discussion: Based on the patient's Hx, exam, and Dx evaluation, there is no indication for emergent surgery or inpatient Tx. It is understood by the patient/guardian that if the Sx's persist or worsen they need to return immediately for re-evaluation. 17:52 ED course: Discussed with patient that this most likely is lumbar pain with jr8 radiculopathy based on presentation and CT scan. No abdominal pain at this time. The pain that he was experiencing is most likely radiated pain from lumbar region. Will put on meds and see how he does. If worse knows to come back. Patient good with this plan . 12/02 14:20 Order name: Urine Dipstick-Ancillary; Complete Time: 14:54 EDMS 12/02 15:33 Order name: Basic Metabolic Panel; Complete Time: 16:58 jr8 12/02 14:13 Order name: CT Stone Protocol; Complete Time: 15:12 ca1 12/02 15:33 Order name: CBC with Diff; Complete Time: 16:55 jr8 12/02 15:33 Order name: Hepatic Function; Complete Time: 16:58 jr8 12/02 15:33 Order name: Lipase; Complete Time: 16:58 8 12/02 14:13 Order name: Urine Dipstick-Ancillary (obtain specimen); Complete Time: 14:20 ca1 12/02 15:33 Order name: IV Saline Lock; Complete Time: 16:28 jr8 12/02 15:33 Order name: Labs collected and sent; Complete Time: 16:28 8 12/02 15:33 Order name: US Scrotum Testicles; Complete Time: 16:55 jr8 Administered Medications: 16:26 Drug: Zofran (Ondansetron) 4 mg Route: IVP; Site: right forearm; ca1 18:41 Follow up: Response: No adverse reaction bw 16:29 Drug: morphine 4 mg {Note: rass 0.} Route: IVP; Site: right forearm; ca1 18:41 Follow up: Response: No adverse reaction bw Disposition: 12/03 07:17 Co-signature as Attending Physician, Jb Wilhelm MD I agree with the assessment and [facility] plan of care. Disposition: 12/02/20 17:51 Discharged to Home. Impression: Low back pain, Radiculopathy, lumbosacral region. - Condition is Stable. - Discharge Instructions: Abdominal Pain, Adult, Back Pain, Adult. - Prescriptions for Robaxin 500 mg Oral Tablet - take 2 tablet by ORAL route every 6 hours As needed; 40 tablet. Tramadol 50 mg Oral Tablet - take 1 tablet by ORAL route every 8 hours as needed; 12 tablet. - Medication Reconciliation Form, Thank You Letter, Antibiotic Education, Prescription Opioid Use form. - Follow up: Private Physician; When: 2 - 3 days; Reason: Recheck today's complaints, Continuance of care, Re-evaluation by your physician. - Problem is new. - Symptoms have improved. Signatures: Dispatcher [employer] EDMS Jb Wilhelm MD MD cha Mickail, Joel, PA PA jmm Roszak, Josh, PA PA jr8 Ana Stoner, RN RN ca1 Beth Pina RN RN bw Corrections: (The following items were deleted from the chart) 12/02 18:45 17:51 12/02/2020 17:51 Discharged to Home. Impression: Low back pain; Radiculopathy, bw lumbosacral region. Condition is Stable. Forms are Medication Reconciliation Form, Thank You Letter, Antibiotic Education, Prescription Opioid Use. Follow up: Private Physician; When: 2 - 3 days; Reason: Recheck today's complaints, Continuance of care, Re-evaluation by your physician. Problem is new. Symptoms have improved. jr8
--- NOTE | 2020-12-02 17:52 | ER ---
Nurse's Notes [facility] Name: Anthony Griffin Age: 65 yrs Sex: Male : 1955 Arrival Date: 12/02/2020 Time: 13:37 Bed 14 Private MD: Diagnosis: Low back pain;Radiculopathy, lumbosacral region Presentation: 12/02 13:50 Chief complaint: Patient states: L flank pain radiating to the L lower back and to the ca1 groin x 4 days [employer]. Denies fever. Reports urinary urgency and frequency. HX of kidney stones. Coronavirus screen: Client denies travel out of the [place] in the last 14 days. At this time, the client does not indicate any symptoms associated with coronavirus-19. Ebola Screen: Patient negative for fever greater than or equal to 101.5 degrees Fahrenheit, and additional compatible Ebola Virus Disease symptoms Patient denies exposure to infectious person. Patient denies travel to an Ebola-affected area in the 21 days before illness onset. No symptoms or risks identified at this time. Initial Sepsis Screen: Does the patient meet any 2 criteria? No. Patient's initial sepsis screen is negative. Does the patient have a suspected source of infection? No. Patient's initial sepsis screen is negative. Risk Assessment: Do you want to hurt yourself or someone else? Patient reports no desire to harm self or others. Onset of symptoms was December 02, 2020. 13:50 Method Of Arrival: Ambulatory ca1 13:50 Acuity: MENDY 3 ca1 Triage Assessment: 18:33 General: Appears in no apparent distress. uncomfortable, Behavior is calm, cooperative, bw appropriate for age. Historical: - Allergies: 13:53 No Known Allergies; ca1 - PMHx: 13:53 CVA; Dementia; Hyperlipidemia; Hypertension; pre-diabetic; Diabetes - NIDDM; ca1 - PSHx: 13:53 femoral artery repair; Carotid surgery; Hernia repair; Appendectomy; ca1 - Immunization history:: Pneumococcal vaccine is up to date, . - Social history:: Smoking status: Patient denies any tobacco usage or history of. Screenin:33 Abuse screen: Denies threats or abuse. Nutritional screening: No deficits noted. bw Tuberculosis screening: No symptoms or risk factors identified. Fall Risk None identified. Assessment: 14:45 Pain: Complains of pain in suprapubic area and umbilical area and epigastric area and bw abdomen diffusely. Neuro: No deficits noted. Cardiovascular: No deficits noted. Respiratory: No deficits noted. GI: Reports lower abdominal pain. : Swelling noted. EENT: No deficits noted. 15:45 Reassessment: Patient appears in no apparent distress at this time. Patient and/or bw family updated on plan of care and expected duration. Pain level reassessed. Patient is alert, oriented x 3, equal unlabored respirations, skin warm/dry/pink. 16:45 Reassessment: Patient appears in no apparent distress at this time. Patient and/or bw family updated on plan of care and expected duration. Pain level reassessed. Patient is alert, oriented x 3, equal unlabored respirations, skin warm/dry/pink. 18:31 Reassessment: Patient appears in no apparent distress at this time. Patient and/or bw family updated on plan of care and expected duration. Pain level reassessed. Patient is alert, oriented x 3, equal unlabored respirations, skin warm/dry/pink. Vital Signs: 13:50 BP 126 / 64; Pulse 72; Resp 16 S; Temp 98.1(TE); Pulse Ox 96% on R/A; Weight 90.26 kg ca1 (R); Height 5 ft. 10 in. (177.80 cm) (R); Pain 9/10; 14:45 BP 133 / 59; Pulse 86; Resp 18; Pulse Ox 95% on R/A; bw 15:45 BP 131 / 60; Pulse 87; Resp 18; Pulse Ox 95% on R/A; bw 16:45 BP 129 / 62; Pulse 84; Resp 18; Pulse Ox 94% on R/A; bw 18:31 BP 133 / 70; Pulse 87; Resp 18; Pulse Ox 91% on R/A; bw 13:50 Body Mass Index 28.55 (90.26 kg, 177.80 cm) ca1 ED Course: 13:37 Patient arrived in ED. ds1 13:52 Triage completed. ca1 13:53 Arm band placed on right wrist. ca1 14:33 CT Stone Protocol In Process Unspecified. EDMS 15:16 Brent Burch PA is PHCP. jr8 15:16 Jb Wilhelm MD is Attending Physician. jr8 16:25 US Scrotum Testicles In Process Unspecified. EDMS 17:18 Beth Pina, RN is Primary Nurse. bw 18:32 No provider procedures requiring assistance completed. IV discontinued. bw 18:33 Patient has correct armband on for positive identification. Bed in low position. Call light in reach. Side rails up X 1. replanter on. Pulse ox on. NIBP on. Warm blanket given. Administered Medications: 16:26 Drug: Zofran (Ondansetron) 4 mg Route: IVP; Site: right forearm; ca1 18:41 Follow up: Response: No adverse reaction bw 16:29 Drug: morphine 4 mg {Note: rass 0.} Route: IVP; Site: right forearm; ca1 18:41 Follow up: Response: No adverse reaction bw Outcome: 17:51 Discharge ordered by MD. perez 18:32 Discharged to home ambulatory. bw 18:32 Condition: stable 18:32 Discharge instructions given to patient. 18:45 Patient left the ED. Signatures: Dispatcher [employer] EDMO Saritha Swartz ds1 Brent Burch PA PA jr8 Acob, Cheryl, RN RN ca1 Beth Pina, JEREMIAH RN Corrections: (The following items were deleted from the chart) 13:54 13:50 Chief complaint: Patient states: L flank pain radiating to the L lower back and ca1 to the groin x 4 days [employer]. Denies fever. Reports urinary urgency and frequency ca1
[2020-12-02 22:52] VITALS: BP 133/70; O2SAT 91
== END 2020-12-02 18:45 | disposition home or self-care (01) ==
LOC: ER 13:34
DX: M54.17 Radiculopathy, lumbosacral region (principal); I10 Essential (primary) hypertension
CPT/HCPCS: 85025; 80048; 36415; 80076; 81003; 83690; 76377; 74176; 76870; J2405; 96374; 96375; 99284